=== PATIENT | male | born 1960 | race Caucasian/White ===

== ENCOUNTER 2020-05-15 12:57 | Inpatient (IN) | payer BC, SELFPAY ==
[2020-05-15] VITALS (12 sets, daily range): BP systolic 112–141; BP diastolic 61–89; PULSE 70–98; RESP 12–18; TEMP 36.3–36.6; O2SAT 93–98; BMI 36.2
--- NOTE | 2020-05-15 | XR_ITS ---
WS: [id number] Exam: XR tibia fibula RT 2V [id number] Date/Time of Exam: 05/15/2020 6:17 PM Reason For Exam: OR PICS Comparison 05/15/2020. C-arm images of the right tibia and fibula are submitted for evaluation. Comminuted spiral fracture o f the lower metadiaphysis of the tibia is noted stabilized with the an intramedullary katie and multipl e screws. No positional change noted. Alignment appears to be satisfactory for healing. There is also a spiral fracture of the lower diaphysis of the fibula unchanged in position. XR/XR tibia fibula RT 2V [id number] IMPRESSION: 1. Fracture of the lower tibia with internal fixation. Alignment appears to be satisfactory for healing without change. 2. Fracture of the lower fibula unchanged in alignment.
--- NOTE | 2020-05-15 | SCC_ITS ---
Procedure: IM nail Right Tibia 119.7 seconds of fluoroscopic guidance, for a cumulative dose of 5.62 mGy, was provided to by the radiology department. C-arm images of the RIGHT lower leg were saved for the patient's permanent record. [facility]
--- NOTE | 2020-05-15 13:03 | XRR_ITS ---
PROCEDURE INFORMATION: Exam: XR Chest, 1 View Exam date and time: 05/15/2020 1:26 PM Age: 59 years old Clinical indication: Injury or trauma; Fall; Blunt trauma (contusions or hematomas); Additional info: Dyspnea TECHNIQUE: Imaging protocol: XR of the chest Views: 1 view. COMPARISON: No relevant prior studies available. FINDINGS: Lungs: Unremarkable. No consolidation. Pleural space: Unremarkable. No pleural effusion. No pneumothorax. Heart/Mediastinum: Unremarkable. No cardiomegaly. Bones/joints: Surgical hardware is seen in the left clavicle and cervical spine XR/XR chest 1V portable [id number] IMPRESSION: 1. No acute findings. 2. Surgical hardware left clavicle and cervical spine
--- NOTE | 2020-05-15 13:06 | ECG_ITS ---
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 Measurements Intervals [place] Rate: 91 P: 64 OK: 157 QRS: 79 QRSD: 86 T: 65 QT: 336 QTc: 414 Interpretive Statements SINUS RHYTHM No previous ECG available for comparison Electronically Signed On 05-15-2020 16:40:01 GROCERY DEPARTMENT MANAGER by Flex Rivers M.D. [id number]
--- NOTE | 2020-05-15 13:07 | XRR_ITS ---
PROCEDURE INFORMATION: Exam: XR Right Tibia and Fibula Exam date and time: 05/15/2020 1:24 PM Age: 59 years old Clinical indication: Injury or trauma; Fall; Blunt trauma; Ankle; Right; Additional info: Tib/fib fracture TECHNIQUE: Imaging protocol: XR Right tibia and fibula. Views: 2 views. COMPARISON: No relevant prior studies available. FINDINGS: Bones/joints: Comminuted mildly displaced fracture of the distal shaft of the tibia and fibula Soft tissues: Normal. XR/XR tibia fibula RT 2V [id number] IMPRESSION: Comminuted mildly displaced fracture distal shaft of the tibia and fibula
--- NOTE | 2020-05-15 13:08 | XRR_ITS ---
PROCEDURE INFORMATION: Exam: XR Right Ankle Exam date and time: 05/15/2020 1:24 PM Age: 59 years old Clinical indication: Injury or trauma; Fall; Blunt trauma; Ankle; Right; Additional info: Tib fib fracture TECHNIQUE: Imaging protocol: XR Right ankle. Views: 1 or 2 views. COMPARISON: No relevant prior studies available. FINDINGS: Bones/joints: There is a comminuted mildly displaced fracture of the distal shaft of the tibia and fibula. The bones show closed reduction and improved alignment since prior Soft tissues: . Splint material is now in place in the posterior aspect of the ankle. XR/XR ankle RT 2V [id number] IMPRESSION: Comminuted displaced fracture distal shaft of the tibia and fibula.
--- NOTE | 2020-05-15 13:10 | ED_ITS ---
HPI - Extremity Injury (Lower) General: Chief Complaint: Extremity Injury, Lower Stated Complaint: RIGHT LOWER EXT PAIN Time Seen by Provider: 05/15/20 12:58 History of Present Illness: HPI Narrative: The patient is a 59-year-old male who comes to the ER complaining of tib-fib fracture on the right. He says he broke it 20 years ago and had the pins and rods taken out a couple years ago. Today he was standing felt like his knee was buckling but he realized his leg crumpled underneath him. It is externally rotated. EMS was called and placed him in a splint. He has good cap refill in his toes and palpable DP pulse. Sensation intact in his toes and feet. EMS gave 2 mg Dilaudid prior to arrival MD complaint: leg injury Place: street/outdoors Severity: similar to previous episodes Exacerbating factors: movement Context: fall Associated symptoms: Reports inability to bear weight and swelling; Deny numbness Other symptoms: none Review of Systems General: Reports: 10 or more systems reviewed and unremarkable except in HPI and below Const: Denies: fatigue Eyes: Denies: change in vision, blurry vision or eye redness ENMT: Denies: throat pain, swelling of lips/tongue, ear or mastoid pain or nasal congestion Card: Denies: chest pain, palpitations, irregular heart rhythm, edema, dyspnea on exertion or orthopnea Resp: Denies: dyspnea, productive cough or non-productive cough GI: Denies: abdominal pain, diarrhea or GI cramping : Denies: flank pain, urinary frequency or urinary urgency Musc: Denies: neck pain, back pain, extremity pain, joint pain, joint redness, limited range of motion or muscle weakness Skin/Breast: Denies: rash, pruritus, erythema, skin pain or skin tenderness Neuro: Denies: headache(s), numbness in extremities, weakness in extremities, sensory changes, difficulty walking, dizziness, confusion or Slurred speech present Psych: Denies: anxiety or depression Endo: Denies: polyuria All/Imm: Denies: urticaria, throat swelling or tongue swelling Physical Exam Const: COMMON NORMALS: no acute distress, average body habitus, patient oriented x3, no limitations, healthy appearing, alert and well nourished GENERAL APPEARANCE: cooperative, comfortable, well kempt and well developed ORIENTATION/CONSCIOUSNESS: Yes awake, Yes oriented to person, Yes oriented to place and Yes oriented to time HENMT: COMMON NORMALS: normocephalic, external ears normal and Normal external nose present HEAD & SCALP: normal to inspection and normocephalic NOSE: Normal external nose present EXTERNAL EAR: Yes external ears normal MOUTH: Normal oral and palatal mucosa present THROAT: posterior oropharynx normal Eye: COMMON NORMALS: Equal, round and reactive pupils present and EOMs intact bilaterally GENERAL EYE: appearance normal, both eyes and all related structures PUPIL: Yes Equal, round and reactive pupils present Neck/C-Spine: COMMON NORMALS: full ROM, no lymphadenopathy, no meningeal signs and no JVD GENERAL: Yes normal visual inspection Lymph: LYMPHATIC: no lymphadenopathy noted Chest: COMMONS NORMALS: normal inspection of the chest and normal palpation of entire chest wall Resp: COMMON NORMALS: normal respiratory effort, No retractions, No use of accessory muscles, clear to auscultation bilaterally and percussion normal EFFORT & INSPECTION: Yes able to speak in complete sentences AUSCULTATION: clear to auscultation bilaterally PERCUSSION: percussion normal Cardio: COMMON NORMALS: no JVD, regular rate, regular rhythm, S1 normal heart sound present, S2 normal heart sound present and Peripheral pulses 2+ throughout RATE: regular rate RHYTHM: regular rhythm HEART SOUNDS: S1 normal heart sound present and S2 normal heart sound present PERIPHERAL PULSES: Peripheral pulses 2+ throughout GI: COMMON NORMALS: Normal to inspection, nondistended, normoactive bowel sounds present, Soft to palpation, non-tender and no masses INSPECTION: Yes normal to inspection PALPATION: Yes Soft to palpation : COMMON NORMALS: Yes no CVA tenderness BLADDER/KIDNEY EXAM: Yes no CVA tenderness Back/Pelvis: COMMON NORMALS: no CVA tenderness, thoracic and lumbar spine normal to inspection, no thoracic nor lumbar tenderness and thoraco-lumbar ROM normal Extremity: COMMON NORMALS: normal to inspection, full ROM, capillary refill normal, no joint enlargement and no pedal edema NARRATIVE EXTREMITY EXAM: Normal except right lower extremity obvious tib-fib fracture. Closed fracture. The leg is externally rotated 20 to 30 degrees. Palpable dorsalis pedis pulse. Capillary refill and sensation intact distal to injury. GENERAL: Yes normal exam except as noted Neuro: COMMON NORMALS: patient oriented x3, CN's II-XII intact bilaterally, moves all extremities, no focal motor deficits, no sensory deficits noted and gait normal SENSORIUM/ORIENTATION: Yes alert, Yes oriented to person, Yes oriented to place and Yes oriented to time MENINGEAL SIGNS: Yes no meningeal signs Psych: COMMON NORMALS: mental status grossly normal, Normal thought process present, cooperative, normal affect and speech normal APPEARANCE: Yes well kempt ATTITUDE: Yes calm SPEECH: Yes normal speech THOUGHT PROCESS: Normal thought process present Skin: COMMON NORMALS: no rashes or lesions noted GENERAL SKIN EXAM: no rashes or lesions noted Course Vital Signs: Vital signs: Vital Signs Temperature 97.7 F 05/15/20 13:03 Pulse Rate 70 05/15/20 13:16 Respiratory Rate 18 05/15/20 13:03 Blood Pressure 135/82 05/15/20 13:03 Pulse Oximetry 95 05/15/20 13:03 MDM - Extremity Injury (Lower) MDM Narrative: Medical decision making narrative: The patient has a tib-fib fracture comminuted to his right side. Discussed with Dr. Hodges who will consult on him and Dr. Oneal accepts for inpatient care. Patient's pain is under control currently Differential Diagnosis: Extremity Injury, Lower Differential Diagnosis: Likely ankle sprain and strain and ankle fracture Discharge Plan Discharge Patient Disposition: Admitted As Inpatient Clinical Impression: Fracture of tibia and fibula Qualifiers: Encounter type: initial encounter Fracture type: closed Laterality: right Qualified Code(s): S82.201A - Unspecified fracture of shaft of right tibia, initial encounter for closed fracture Condition: Stable Coding Level of Care Code ED Account Assistant for Mynor Tesfaye Exam Comprehensive
[2020-05-15 15:04] LABS: Basophils % 0.7 %; Eosinophils % 0.2 %; Hematocrit 47.5 % (42.0-52.0); Hemoglobin 15.7 g/dL (11.7-16.6); Lymphocytes # 0.7 10^3/uL (0.8-4.8); Lymphocytes % 12.9 %; Mean Corpuscular HGB Conc 33.1 g/dL (30.0-36.0); Mean Corpuscular Hemoglobin 34.1 pg (28.0-34.0); Mean Corpuscular Volume 103.3 fL (80-94); Mean Platelet Volume 9.6 fL (7.4-10.4); Monocytes # 0.7 10^3/uL (0.2-0.9); Monocytes % 12.3 %; Neutrophils # 4.06 10^3/uL (1.8-7.7); Neutrophils % 73.7 %; Nucleated Red Blood Cells % 0 %; Platelet Count 185 10^3/cmm (130-400); Red Cell Distribution Width 13.4 % (12.1-15.1); White Blood Count 5.5 10^3/uL (4.0-10.0)
[2020-05-15 15:30] LABS: Troponin(5th) Baseline 8 ng/L (0-15)
[2020-05-15 15:37] LABS: Alanine Aminotransferase 21 U/L (0-41); Albumin Level 4.1 g/dL (3.5-5.2); Alkaline Phosphatase 74 IU/L (40-130); Anion Gap 16.4 (5-19); Aspartate Amino Transferase 25 U/L (0-40); Blood Urea Nitrogen 17 mg/dL (6-20); Carbon Dioxide 21 mmol/L (22-29); Chloride 102 mmol/L (98-107); Globulin 2.3 g/dL (1.3-4.6); Glomerular Filtration Rate 76.7 mL/min (90-130); Glucose 108 mg/dL (65-115); NT Pro B Type Natriuretic Pept 61 pg/mL (0-125); Osmolality Calculated 282 mOsm/kg (285-295); Potassium 4.4 mmol/L (3.5-5.1); Sodium 135 mmol/L (136-145); Total Bilirubin 0.3 mg/dL (0.15-1.2); Total Protein 6.4 g/dL (6.6-8.7)
--- NOTE | 2020-05-15 16:08 | PM.CONSULT ---
Providers/Reason For Consult Consulting Physican/Specialty*: hospitalist Reason for Consult*: Broken tibia Attending Physician: Simone Hodges DO History of Present Illness History of Present Illness Angel Jane is a 59 year old male The patient is a 59-year-old male who comes to the ER complaining of tib-fib fracture on the right. He says he broke it 20 years ago and had the pins and rods taken out a couple years ago. Today he was standing felt like his knee was buckling but he realized his leg crumpled underneath him. It is externally rotated. EMS was called and placed him in a splint. He has good cap refill in his toes and palpable DP pulse. Sensation intact in his toes and feet. EMS gave 2 mg Dilaudid prior to arrival MD complaint: leg injury Place: street/outdoors Severity: similar to previous episodes Exacerbating factors: movement Context: fall Associated symptoms: Reports inability to bear weight and swelling; Deny numbness Other symptoms: none Review of Systems Narrative: General ROS: negative for weight changes, fever ENT ROS: negative for nasal congestion, drainage or bleeding, sore throat, dysphagia or ear pain Eyes: PERRL Hematological and Lymphatic ROS: negative for swollen glands or abnormal bleeding Endocrine ROS: negative for polyuria/polydpsia or new changes in weight Respiratory ROS: negative for cough, shortness of breath, or wheezing Cardiovascular ROS: negative for chest pain or dyspnea on exertion Gastrointestinal ROS: negative for reflux, abdominal pain, change in bowel habits, or black or bloody stools Musculoskeletal ROS: negative for back pain, neck pain, or joint pain or swelling except for current problem Neurological ROS: negative for TIA or stoke symptoms Skin: no rashes Meds/Allergies Home Medications and Allergies Home Medications Medication Instructions Recorded Confirmed Last Taken Type alfuzosin 10 mg PO DAILY@05/15/20 05/15/20 05/15/20 History bupropion HCl 300 mg PO DAILY@05/15/20 05/15/20 05/15/20 History clonazepam 1 mg PO TID PRN 05/15/20 05/15/20 05/15/20 History diltiazem HCl 180 mg PO DAILY@05/15/20 05/15/20 05/15/20 History duloxetine See Rx Instructions .ROUTE .COMPLEX 05/15/20 05/15/20 05/15/20 History lisinopril 5 mg PO DAILY@219905/15/20 05/15/20 05/14/20 History mirtazapine 30 mg PO BEDTIME@219905/15/20 05/15/20 05/14/20 History pantoprazole 40 mg PO DAILY@07 05/15/20 05/15/20 05/15/20 History tizanidine 4 mg PO BEDTIME@22005/15/20 05/15/20 05/14/20 History topiramate 100 mg PO BEDTIME@22005/15/20 05/15/20 05/14/20 History Allergies Allergy/AdvReac Type Severity Reaction Status Date / Time NSAIDS (Non-Steroidal Allergy Unknown Unknown Verified 05/15/20 14:25 Anti-Inflamma Penicillins Allergy Unknown Unknown Verified 05/15/20 14:25 Sulfa (Sulfonamide Allergy Unknown Unknown Verified 05/15/20 14:25 Antibiotics) Vitals/I&O/Wt Last Vital Signs Temp 97.6 F 05/15/20 15:10 Pulse 87 05/15/20 15:10 Resp 18 05/15/20 15:10 BP 136/76 05/15/20 15:10 Pulse Ox 95 05/15/20 15:10 Weight last 48 hrs Weight 260 lb Physical Exam Narrative: EXAM NARRATIVE: Skin: Intact and healthy Swelling: right leg with sweling Tenderness location: right tibia Tenderness severity: modrate A&P Assessment and plan (1) Fracture of tibia and fibula: Status: Acute Qualifiers: Encounter type: initial encounter Fracture type: closed Laterality: right Qualified Code(s): S82.201A - Unspecified fracture of shaft of right tibia, initial encounter for closed fracture; S82.401A - Unspecified fracture of shaft of right fibula, initial encounter for closed fracture Additional A&P Information IM nail Right Tibia Consult Attestations Medical Necessity Statement: broken tibia needs surgery Coding Level of Care Code Acute Orthopedics Pediatric Physician for Chg Fwd Diagnoses Fracture of tibia and fibula S82.201A; S82.401A Encounter type: initial encounter Fracture type: closed Laterality: right
--- NOTE | 2020-05-15 16:16 | W.PM.OPSUD ---
Surgery/Procedure H&P Update DATE OF PROCEDURE: May 15, 2020 DATE H&P PERFORMED: 05/15/20 H&P UPDATE INFORMATION: I have examined patient prior to procedure PLANNED PROCEDURE: Operation Date: 05/15/20 16:50 Proposed Procedures p ORIF Tibia/Fibula(Right) - Simone Hodges DO
--- NOTE | 2020-05-15 16:34 | ANES.PREANE2 ---
Pre-Anesthetic Assessment Pre-Anesthetic Assessment: Height/Weight: Height 1.8 m Weight 117.934 kg Temp Pulse Resp BP Pulse Ox 97.6 F 87 18 136/76 95 05/15/20 15:10 05/15/20 15:10 05/15/20 15:10 05/15/20 15:10 05/15/20 15:10 Preop Diagnosis: right tibia fracture Proposed Procedure: Operation Date: 05/15/20 16:50 Proposed Procedures p ORIF Tibia/Fibula(Right) - Simone Hodges, DO Was Beta Anushka taken within 24 hours: N/A Social: Social History: Tobacco and No tobacco Exam: Pre-Anes Outpt Exam: alert, oriented x 3, clear to auscultation bilaterally and regular rate & rhythm Airway: Submandibular: WNL Cervical ROM: WNL MP: 2 Dentition: Full Pulmonary: Pulmonary: Sleep apnea CV/HEM: CV/HEM: HTN : : None reported Hepatic: Hepatic: None reported GI: GI: GERD Metabolic: Metabolic: None reported Musc/skel: Comments: RLE frx Neuropsych: Neuropsych: Anxiety Anesthetic Plan: ASA status: 3 Anesthesia: General Risk of > 500 ml blood loss (7ml/kg in children): No Data Anesthesia CBC & Chem 7: 05/15/20 14:33 05/15/20 14:33 Other Labs: Laboratory Results - last 48 hr 05/15/20 05/15/20 05/15/20 14:33 14:33 14:33 WBC 5.5 RBC 4.60 Hgb 15.7 Hct 47.5 MCV 103.3 H MCH 34.1 H MCHC 33.1 RDW 13.4 Plt Count 185 MPV 9.6 Neut % (Auto) 73.7 Lymph % (Auto) 12.9 [place] % (Auto) 12.3 Eos % (Auto) 0.2 Baso % (Auto) 0.7 Neut # (Auto) 4.06 Lymph # (Auto) 0.7 L [place] # (Auto) 0.7 Eos # (Auto) 0.0 Baso # (Auto) 0.0 Nucleated RBC % (auto) 0 Nucleated RBCs # 0.0 Sodium 135 L Potassium 4.4 Chloride 102 Carbon Dioxide 21 L Anion Gap 16.4 BUN 17 Creatinine 1.0 GFR Calculation 76.7 L Glucose 108 Calculated Osmolality 282 L Calcium 9.0 Total Bilirubin 0.3 AST 25 ALT 21 Alkaline Phosphatase 74 Troponin T Baseline 8 NT-Pro-B Natriuret Pep 61 Total Protein 6.4 L Albumin 4.1 Globulin 2.3 Cardiac Studies: No Data to Display
[2020-05-15] MEDS: clindamycin 900 MG/50 ML PREMIX 100 MG IV (16:45)
[2020-05-15 17:51] LABS: Add Urine Microscopic? NO
[2020-05-15 17:58] LABS: Bilirubin Urine Neg (Negative); Blood Urine Neg (Negative); Glucose Urine UA Norm (Normal); Ketones Urine Negative (Negative); Leukocyte Esterase Urine Negative (Negative); Nitrate Urine Negative (Negative); Protein Urine Neg (Negative); Sulfosalicylic Acid Urine Negative (Negative); Urine Appearance Clear (CLEAR); Urine Color Yellow (Yellow); Urobilinogen Urine Norm (Negative); pH Urine 8 (5-7)
--- NOTE | 2020-05-15 18:22 | PM.OP ---
Operative Report Date of procedure: May 15, 2020 Pre-op Diagnosis: right tibia fracture Post-op diagnosis: same Procedure Done: IM nail Right Tibia Surgeon: Simone Hodges Anesthesia: General Estimated blood loss (mL): 100 Condition: stable Disposition: PACU Procedure: IM nail Right Tibia Patient brought to the operative suite placed in supine position all areas impingement well-padded patient prepped and draped normal sterile fashion. Start incision made over the quad tendon. Quad tendon was split. Dilators passed into the quad tendon to the starting point of the tibia. Opening reamer was inserted guidewires passed fractures reduced the onpja-zh-jnoaf reduction clamp. Once the guidewire was passed then the canal was reamed to 13 mm with diet size 11 nail was selected. Appropriate side length. 2 screws were placed proximal locking screws. Through the nail of the bone. And 3 screws were placed distally. 2 screws medial to lateral. And 1 screw anterior to posterior. AP lateral fluoroscopy ensured the fracture and hardware prone position. Wounds were irrigated closed with Vicryl and med. Sterile dressings were applied patient was transferred to the PACU in stable condition.
--- NOTE | 2020-05-15 18:37 | ANE.PACU2 ---
Inpatient post-anesthesia follow up: Airway intact: Yes Vital signs: Temperature 97.6 F Pulse Rate [Right] 70 Pulse Rate 87 Respiratory Rate 18 Blood Pressure [Ri ght Arm] 135/82 Blood Pressure 136/76 Pulse Oximetry 95 Oxygen Delivery Me thod Room Air Oxygen Flow Rate Fraction of Inspir ed Oxygen Hydration adequate: Yes Nausea and vomiting: No Pain level: 2 Mental status: Baseline
--- NOTE | 2020-05-15 19:27 | PM.HP ---
Providers/Chief Complaint Admitting Physician: Simone Hodges DO Chief Complaint: RIGHT LOWER EXT PAIN History of Present Illness Angel Jane is a 59 year old male who has history of hypertension, dyslipidemia previous history of right fibula, fibula fracture 1996, presented today after a fall. Patient is stating that today he fell when his right leg crumpled, he fell backwards and noted his right leg was rotated outwards. He is denying recent falls, trauma to his leg or any blunt forceful trauma/accidents. Currently the patient this happened spontaneously today. He was brought to the ER was diagnosed with right tibiofibular fracture he was taken to the OR right away by the time I saw him he was on medical floor resting comfortably. He was complaining of knee pain and dry mouth and wanted to eat something. He was able to tell me about his medications and past medical and surgical history. He was awake alert. Hemodynamically stable, afebrile. Labs were reviewed, glucose 108, procedure note reviewed patient is status post IM nail right tibia. Review of Systems Const: Denies: fever(s) Eyes: Denies: change in vision ENMT: Denies: throat pain Card: Denies: chest pain Resp: Denies: dyspnea GI: Denies: abdominal pain : Denies: flank pain Musc: Reports: extremity pain and limited range of motion; Denies: neck pain Skin/Breast: Denies: rash Neuro: Denies: headache(s) Psych: Denies: anxiety Endo: Denies: polyuria Devin/Lymph: Denies: easy bruising All/Imm: Denies: urticaria Medications/Allergies Home Medications Medication Instructions Recorded Confirmed Last Taken Type alfuzosin 10 mg PO DAILY@05/15/20 05/15/20 05/15/20 History bupropion HCl 300 mg PO DAILY@05/15/20 05/15/20 05/15/20 History clonazepam 1 mg PO TID PRN 05/15/20 05/15/20 05/15/20 History diltiazem HCl 180 mg PO DAILY@05/15/20 05/15/20 05/15/20 History duloxetine See Rx Instructions .ROUTE .COMPLEX 05/15/20 05/15/20 05/15/20 History lisinopril 5 mg PO DAILY@0 05/15/20 05/15/2020 History mirtazapine 30 mg PO BEDTIME@219905/15/20 05/15/20 05/14/20 History pantoprazole 40 mg PO DAILY@07 05/15/20 05/15/20 05/15/20 History tizanidine 4 mg PO BEDTIME@219905/15/20 05/15/20 05/14/20 History topiramate 100 mg PO BEDTIME@219905/15/20 05/15/20 05/14/20 History Allergies Allergy/AdvReac Type Severity Reaction Status Date / Time NSAIDS (Non-Steroidal Allergy Unknown Unknown Verified 05/15/20 14:25 Anti-Inflamma Penicillins Allergy Unknown Unknown Verified 05/15/20 14:25 Sulfa (Sulfonamide Allergy Unknown Unknown Verified 05/15/20 14:25 Antibiotics) PFSH Acute PFSH: Medical History (Updated 05/15/20 @ 20:22 by Brayan Petersen MD) Alcohol abuse No recent relapse Depression Dyslipidemia Exertional shortness of breath Hypertension Leg fracture, right 1997 right tibia and fibula Migraine headache Surgical History (Updated 05/15/20 @ 20:22 by Brayan Petersen MD) H/O cardiac catheterization November 2019, normal angiogram Family History (Updated 05/15/20 @ 20:22 by Brayan Petersen MD) Other CAD (coronary artery disease) Cancer Diabetes Social History (Updated 05/15/20 @ 20:22 by Brayan Petersen MD) Smoking and tobacco status: current every day smoker smokeless tobacco Alcohol intake: current Alcohol intake frequency: few times a month Substance/Drug Use: never Household members: spouse Housing: House Vitals/I&O/Wt Last Vital Signs Temp 97.6 F 05/15/20 18:40 Pulse 92 05/15/20 18:40 Resp 15 05/15/20 18:40 BP 112/61 05/15/20 18:40 Pulse Ox 94 05/15/20 18:40 05/15/20 05/15/20 05/15/20 06:59 14:59 22:59 Intake Total 50 / 50 Output Total 25 / 25 Balance 25 / 25 Weight last 48 hrs Weight 117.934 kg Physical Exam Narrative: EXAM NARRATIVE: Morbidly obese male currently in semifollow position complaining of right knee pain otherwise no chest pain shortness of breath Awake alert oriented x3 GCS 15 Looks more than stated age Patient is asking for sip of water Awake alert oriented x3 GCS 15 no neurological deficit EOMI, PERRLA Right leg with splint and surgical dressing which was not removed Patient complaining of right knee pain No skin color changes of right foot noted Abdomen soft distended bloated visceral obesity No chest pain No acute respite distress Skin without any ischemia gangrene or ulcer Data : 05/15/20 14:33 05/15/20 14:33 A&P Assessment and plan (1) Fracture of tibia and fibula: Day 0 status post intramedullary nail right tibia Complaining of knee pain Currently on [place] I would add bowel regimen to avoid opioid-induced constipation DVT prophylaxis initiated by orthopedic Lovenox 40 mg every 24 hours Bedside filter tip inspector spirometry Monitor for postop complications, 100 mL blood loss during the procedure currently hemodynamically stable I would resume his cardiac diet Status: Acute Qualifiers: Encounter type: initial encounter Fracture type: closed Laterality: right Qualified Code(s): S82.201A - Unspecified fracture of shaft of right tibia, initial encounter for closed fracture; S82.401A - Unspecified fracture of shaft of right fibula, initial encounter for closed fracture Additional A&P Information Hypertension: Currently normotensive I will resume his Cardizem and lisinopril Anxiety/depression: He takes Klonopin and Topamax, mirtazapine at bedtime GERD: Protonix 40 p.o. daily BPH: Continue uroxatral Full code Cardiac diet DVT prophylaxis Lovenox PT elevation Attestations Medical Necessity Statement*: Anticipating stay in the hospital cross more than 2 midnights for management of right tibia-fibula fracture Time Spent in Patient Care: (>than 50% of time spent in counselling and/or direct pt care on unit). 50mins Coding Level of Care Code Acute Loan Servicing Officer for Mynor Tesfaye Diagnoses Fracture of tibia and fibula S82.201A; S82.401A Encounter type: initial encounter Fracture type: closed Laterality: right
[2020-05-15] MEDS: HYDROcodone-acetaminophen 5-325 mg Tablet PO (20:12)
[2020-05-15] MEDS: lisinopril 10 mg Tablet 5 MG PO (21:44)
[2020-05-15] MEDS: tizanidine 4 mg Tablet PO (21:45)
[2020-05-15] MEDS: mirtazapine 30 mg Tablet PO (21:45)
[2020-05-15] MEDS: topiramate 100 mg Tablet PO (21:45)
[2020-05-15] MEDS: duloxetine 30 mg Capsule PO (21:50)
[2020-05-15] MEDS: morphine 4 mg/mL SDV 1 mL 1 MG IVP (22:11)
[2020-05-16] VITALS (8 sets, daily range): BP systolic 103–120; BP diastolic 62–84; PULSE 91–106; RESP 15–20; TEMP 36.9–37.4; O2SAT 92–97
[2020-05-16] MEDS: clindamycin 900 MG/50 ML PREMIX 100 MG IV ×3 (01:13→16:01)
[2020-05-16] MEDS: HYDROcodone-acetaminophen 5-325 mg Tablet PO ×3 (01:20→14:00)
--- NOTE | 2020-05-16 06:11 | PC.NURSE ---
Shift summary Patient has done well this shift. He has had some pain and required pain medication x4 this shift. He has good vitals this shift. He has had good urine output this shift. His dressing are dry and intact. No signs of drainage noted.
[2020-05-16 06:15] LABS: Basophils % 0.3 %; Eosinophils % 0.3 %; Hematocrit 41.8 % (42.0-52.0); Hemoglobin 13.6 g/dL (11.7-16.6); Lymphocytes # 0.8 10^3/uL (0.8-4.8); Lymphocytes % 13.3 %; Mean Corpuscular HGB Conc 32.5 g/dL (30.0-36.0); Mean Corpuscular Hemoglobin 33.9 pg (28.0-34.0); Mean Corpuscular Volume 104.2 fL (80-94); Mean Platelet Volume 9.2 fL (7.4-10.4); Monocytes # 0.8 10^3/uL (0.2-0.9); Monocytes % 14.5 %; Neutrophils # 4.15 10^3/uL (1.8-7.7); Neutrophils % 71.4 %; Nucleated Red Blood Cells % 0 %; Platelet Count 166 10^3/cmm (130-400); Red Blood Count 4.01 10^6/uL (4.1-5.3); Red Cell Distribution Width 13.5 % (12.1-15.1); White Blood Count 5.8 10^3/uL (4.0-10.0)
[2020-05-16 06:23] LABS: Glucose Point of Care 114 mg/dL (70-110)
[2020-05-16] MEDS: enoxaparin 40 mg/0.4 mL Syringe SUBCUT (06:23)
[2020-05-16 06:39] LABS: Anion Gap 12.1 (5-19); Blood Urea Nitrogen 15 mg/dL (6-20); Calcium 8.8 mg/dL (8.5-10.5); Carbon Dioxide 24 mmol/L (22-29); Chloride 101 mmol/L (98-107); Glomerular Filtration Rate 99.3 mL/min (90-130); Glucose 127 mg/dL (65-115); Osmolality Calculated 278 mOsm/kg (285-295); Potassium 4.1 mmol/L (3.5-5.1); Sodium 133 mmol/L (136-145)
[2020-05-16] MEDS: duloxetine 60 mg Capsule PO (06:39)
[2020-05-16] MEDS: morphine 4 mg/mL SDV 1 mL 1 MG IVP (08:38)
[2020-05-16] MEDS: sennosides-docusate Tablet 1 TAB PO (08:38)
--- NOTE | 2020-05-16 10:15 | PM.PN ---
Subjective Subjective: Interval history: patient pain controlled this am was having difficulty through the night Vitals/I&O/Wt Last Vital Signs Temp 99.3 F 05/16/20 08:51 Pulse 106 H 05/16/20 08:51 Resp 18 05/16/20 08:51 BP 103/62 05/16/20 08:51 Pulse Ox 93 05/16/20 08:51 05/15/20 05/16/20 05/16/20 22:59 06:59 14:59 Intake Total 290 / 290 50 / 340 770 / 770 Output Total 475 / 500 Balance 265 / 265 -425 / -160 770 / 770 Weight last 48 hrs Weight 260 lb Physical Exam Narrative: EXAM NARRATIVE: Dressing cdi moving toes sensation intact Data : 05/16/20 06:00 05/16/20 06:00 A&P Additional A&P Information POD #1 IM nail Right Tibia WBAT Right LE Up with PT OK to d/C from ortho standpoint if able to get up with PT d/c on lovenox or aspirin for dvt prophylaxis Attestations Medical Necessity Statement*: OK to d/c from orthostandpoint if able to get up with PT Coding Level of Care Code Acute Environmental Services Associate for Mynor Tesfaye
--- NOTE | 2020-05-16 13:33 | P.DS_ITS ---
Discharge Providers Date of Admission: 05/15/20 19:02 Date of Discharge: May 16, 2020 Attending Provider at Admission: Simone Hodges DO Attending Provider at Discharge: Simone Hodges DO Diagnoses at Discharge Discharge Diagnosis (1) Fracture of tibia and fibula: Status: Acute Qualifiers: Encounter type: initial encounter Fracture type: closed Laterality: right Qualified Code(s): S82.201A - Unspecified fracture of shaft of right tibia, initial encounter for closed fracture; S82.401A - Unspecified fracture of shaft of right fibula, initial encounter for closed fracture Reason for Visit Reason for Visit: RIGHT LOWER EXT PAIN Hospital Course Hospital Course 59 year old male who has history of hypertension, dyslipidemia previous history of right fibula, fibula fracture 1996, presented today after a fall. Patient is stating that today he fell when his right leg crumpled, he fell backwards and noted his right leg was rotated outwards. He is denying recent falls, trauma to his leg or any blunt forceful trauma/accidents. Currently the patient this happened spontaneously today. He was brought to the ER was diagnosed with right tibiofibular fracture he was taken to the OR right away by the time I saw him he was on medical floor resting comfortably. He was complaining of knee pain and dry mouth and wanted to eat something. He was able to tell me about his medications and past medical and surgical history. He was awake alert. Hemodynamically stable, afebrile. Labs were reviewed, glucose 108, procedure note reviewed patient is status post IM nail right tibia. Postoperative course was uncomplicated. pain was under control. Patient was cleared for discharge from orthopedic surgery standpoint. Was started on Lovenox 40 mg subcu daily times 30 days for DVT prophylaxis. Discharged in stable condition. Physical Exam Narrative: EXAM NARRATIVE: General-alert awake and oriented x3 HEENT-grossly unremarkable Chest -nonlabored respirations CVS -normal sinus rhythm Abdomen-nondistended Extremities- no edema Discharge Data Data Completed and Pending: Completed Studies During Hospitalization Category Date Time Status XR ankle RT 2V 73 600 Stat Exams 05/15/20 13:08 Completed XR chest 1V gm ble 70068 Urgent Exams 05/15/20 13:03 Completed XR tibia fibula R T 2V 85724 Stat Exams 05/15/20 13:07 Completed Pending at discharge Category Date Time Status C-arm Fluoroscopy 75163 Routine Exams 05/15/20 16:19 Taken XR tibia fibula R T 2V [id number] Routine Exams 05/15/20 Taken Labs from last 24 hours 05/16/20 05/16/20 05/16/20 06:19 06:00 06:00 WBC 5.8 RBC 4.01 L Hgb 13.6 Hct 41.8 L MCV 104.2 H MCH 33.9 MCHC 32.5 RDW 13.5 Plt Count 166 MPV 9.2 Neut % (Auto) 71.4 Lymph % (Auto) 13.3 [place] % (Auto) 14.5 Eos % (Auto) 0.3 Baso % (Auto) 0.3 Neut # (Auto) 4.15 Lymph # (Auto) 0.8 [place] # (Auto) 0.8 Eos # (Auto) 0.0 Baso # (Auto) 0.0 Nucleated RBC % (a uto) 0 Nucleated RBCs # 0.0 Sodium 133 L Potassium 4.1 Chloride 101 Carbon Dioxide 24 Anion Gap 12.1 BUN 15 Creatinine 0.8 GFR Calculation 99.3 Glucose 127 H POC Glucose 114 H Calculated Osmolal ity 278 L Calcium 8.8 Total Bilirubin AST ALT Alkaline Phosphata se Troponin T Baselin e NT-Pro-B Natriuret Pep Total Protein Albumin Globulin Urine Color Urine Appearance Urine pH Ur Specific Gravit y Urine Protein Urine Glucose (UA) Urine Ketones Urine Blood Urine Nitrate Urine Bilirubin Prot Sulfosalicyli c Acd Urine Urobilinogen Ur Leukocyte Mery ase 05/15/20 05/15/20 05/15/20 14:33 14:33 14:33 WBC 5.5 RBC 4.60 Hgb 15.7 Hct 47.5 MCV 103.3 H MCH 34.1 H MCHC 33.1 RDW 13.4 Plt Count 185 MPV 9.6 Neut % (Auto) 73.7 Lymph % (Auto) 12.9 [place] % (Auto) 12.3 Eos % (Auto) 0.2 Baso % (Auto) 0.7 Neut # (Auto) 4.06 Lymph # (Auto) 0.7 L [place] # (Auto) 0.7 Eos # (Auto) 0.0 Baso # (Auto) 0.0 Nucleated RBC % (a uto) 0 Nucleated RBCs # 0.0 Sodium 135 L Potassium 4.4 Chloride 102 Carbon Dioxide 21 L Anion Gap 16.4 BUN 17 Creatinine 1.0 GFR Calculation 76.7 L Glucose 108 POC Glucose Calculated Osmolal ity 282 L Calcium 9.0 Total Bilirubin 0.3 AST 25 ALT 21 Alkaline Phosphata se 74 Troponin T Baselin e 8 NT-Pro-B Natriuret Pep 61 Total Protein 6.4 L Albumin 4.1 Globulin 2.3 Urine Color Urine Appearance Urine pH Ur Specific Gravit y Urine Protein Urine Glucose (UA) Urine Ketones Urine Blood Urine Nitrate Urine Bilirubin Prot Sulfosalicyli c Acd Urine Urobilinogen Ur Leukocyte Mery ase 05/15/20 14:00 WBC RBC Hgb Hct MCV MCH MCHC RDW Plt Count MPV Neut % (Auto) Lymph % (Auto) [place] % (Auto) Eos % (Auto) Baso % (Auto) Neut # (Auto) Lymph # (Auto) [place] # (Auto) Eos # (Auto) Baso # (Auto) Nucleated RBC % (a uto) Nucleated RBCs # Sodium Potassium Chloride Carbon Dioxide Anion Gap BUN Creatinine GFR Calculation Glucose POC Glucose Calculated Osmolal ity Calcium Total Bilirubin AST ALT Alkaline Phosphata se Troponin T Baselin e NT-Pro-B Natriuret Pep Total Protein Albumin Globulin Urine Color Yellow Urine Appearance Clear Urine pH 8 H Ur Specific Gravit y 1.010 Urine Protein Neg Urine Glucose (UA) Norm Urine Ketones Negative Urine Blood Neg Urine Nitrate Negative Urine Bilirubin Neg Prot Sulfosalicyli c Acd Negative Urine Urobilinogen Norm Ur Leukocyte Mery ase Negative Vitals: Last Vital Signs Temp 99.3 F 05/16/20 08:51 Pulse 106 H 05/16/20 08:51 Resp 18 05/16/20 08:51 BP 103/62 05/16/20 08:51 Pulse Ox 93 05/16/20 08:51 Discharge Plan Discharge Patient Disposition: Home Condition: Stable Prescriptions: New hydrocodone-acetaminophen 5-325 mg Tablet 1 tab PO Q4H PRN (Reason: Breakthrough Pain) Qty: 15 RF: 0 enoxaparin 40 mg/0.4 mL Syringe 40 mg SUBCUT Q24H 30 Days Qty: 12 RF: 0 Continued diltiazem HCl 180 mg capsule,extended release 24hr 180 mg PO DAILY@07 RF: 0 tizanidine 4 mg tablet 4 mg PO BEDTIME@2200 RF: 0 clonazepam 1 mg tablet 1 mg PO TID PRN (Reason: Anxiety) RF: 0 pantoprazole 40 mg tablet,delayed release (DR/EC) 40 mg PO DAILY@07 RF: 0 mirtazapine 30 mg tablet 30 mg PO BEDTIME@2199 RF: 0 lisinopril 10 mg tablet 5 mg PO DAILY@2199 RF: 0 topiramate 100 mg tablet 100 mg PO BEDTIME@2199 RF: 0 bupropion HCl 300 mg tablet extended release 24 hr 300 mg PO DAILY@07 RF: 0 alfuzosin 10 mg tablet extended release 24 hr 10 mg PO DAILY@07 RF: 0 duloxetine 30 mg capsule,delayed release(DR/EC) See Rx Instructions .ROUTE .COMPLEX RF: 0 loratadine 10 mg Tablet 10 mg PO DAILY RF: 0 Discharge Orders: Discharge Order (Routine); Ordered 05/16/20 Ordered By: Vitaly Brooke Referrals: Simone Hodges DO [Physician] - 2 weeks (Please call [facility] on Sunday to schedule an appointment to be seen in 2 weeks.) Discharge Diet: Advance as tolerated Discharge Activity: Increase activity as tolerated and As per PT/OT instructions Patient Instructions: Hydrocodone/Acetaminophen (By mouth), Enoxaparin (Injection), Ankle Fracture (DC), How to Give a Subcutaneous Injection (DC) Activity Restrictions/Additional Instructions: Please monitor your blood pressure at home prior to resuming your blood pressure medications. If systolic blood pressure ( top number ) less than 100 or heart rate less than 55 do not take your blood pressure medicine. Take lovenox SQ daily to prevent blood clots. Stop taking if starting to have any bleeding and contact your PCP or orthopedic surgereon Return to hospital if new symptoms including chest pain, trouble breathing, increasing pain, or fever. Discharge Attestations Time Spent in Discharge Care*: greater than 30 min Specific Discharge Activities: educating patient, discussing with pcp/other providers, discussing with block and case maker/social workers/dc planners, documenting/other paperwork and evaluating patient/reviewing data Status at Discharge: Cognitive status at discharge: cognitively intact , Behavioral status at discharge: cooperative , Functional status at discharge: independent ambulation Overall status at discharge: patient is progressing back to baseline Quality Metrics Clinical Quality Measures During this hospital stay, did patient experience: None Coding Level of Care Code Acute Cook Pie for Mynor Barrerad Diagnoses Fracture of tibia and fibula S82.201A; S82.401A Encounter type: initial encounter Fracture type: closed Laterality: right
--- NOTE | 2020-05-17 16:03 | PC.RESP ---
Smoking Cessation information sent to patient.
== END 2020-05-16 17:42 | disposition home or self-care (01) | DRG 494 ==
LOC: ER 14:18 → OR 14:33 → MEDSURG 20:04
PROVIDERS: Internal Medicine; Admitting Provider Orthopaedic Surgery; Emergency Provider Family Medicine; Visit Provider Orthopaedic Surgery
PROC: 0QSK04Z Reposition Left Fibula with Internal Fixation Device, Open Approach (ICD-10-PCS; CPT 27828; principal; 2020-05-15 16:30)
DX: S82.251A Displaced comminuted fracture of shaft of right tibia, initial encounter for closed fracture (principal); S82.451A Displaced comminuted fracture of shaft of right fibula, initial encounter for closed fracture; W19.XXXA Unspecified fall, initial encounter; I10 Essential (primary) hypertension; E78.5 Hyperlipidemia, unspecified; F10.10 Alcohol abuse, uncomplicated; F41.8 Other specified anxiety disorders; F17.220 Nicotine dependence, chewing tobacco, uncomplicated; M25.561 Pain in right knee; K21.9 Gastro-esophageal reflux disease without esophagitis; N40.0 Benign prostatic hyperplasia without lower urinary tract symptoms
CPT/HCPCS: 12345; 36415; 36416; 71045; 73590; 73600; 76000; 80048; 80053; 81003; 82962; 83880; 84484; 85025; 93005; 96372; 97116; 97161; 97165; 97530; 99283; C1713; J1100; J1650; J2270; J2405; J2704; J3010; J3490

== ENCOUNTER → 2020-06-01 15:26 | Outpatient (BNVA) | payer BC, SELFPAY | PROVIDERS: Visit Provider Orthopaedic Surgery | DX: Z47.89 Encounter for other orthopedic aftercare (principal); S82.201D Unspecified fracture of shaft of right tibia, subsequent encounter for closed fracture with routine healing; S82.401D Unspecified fracture of shaft of right fibula, subsequent encounter for closed fracture with routine healing; X58.XXXD Exposure to other specified factors, subsequent encounter | CPT/HCPCS: 73590 ==

== ENCOUNTER → 2020-07-15 15:35 | Outpatient (BNVA) | payer BC, SELFPAY | PROVIDERS: Visit Provider Orthopaedic Surgery | DX: S82.201A Unspecified fracture of shaft of right tibia, initial encounter for closed fracture (principal); S82.401A Unspecified fracture of shaft of right fibula, initial encounter for closed fracture; Z48.89 Encounter for other specified surgical aftercare | CPT/HCPCS: 73590 ==

== ENCOUNTER → 2020-08-20 10:01 | Outpatient (BNVA) | payer BC, SELFPAY | PROVIDERS: PCP Family Medicine; Visit Provider Orthopaedic Surgery | DX: Z48.89 Encounter for other specified surgical aftercare (principal); S82.201A Unspecified fracture of shaft of right tibia, initial encounter for closed fracture; S82.401A Unspecified fracture of shaft of right fibula, initial encounter for closed fracture; X58.XXXA Exposure to other specified factors, initial encounter | CPT/HCPCS: 73590 ==

== ENCOUNTER 2022-04-10 15:40 | Observation (INO) | payer BC, SELFPAY ==
[2022-04-10] VITALS (39 sets, daily range): BP systolic 103–172; BP diastolic 70–106; PULSE 88–121; RESP 18–38; TEMP 36.8–36.9; O2SAT 91–96; BMI 36.2; BMI 37.3
--- NOTE | 2022-04-10 16:24 | PC.NURSE ---
pt reports he was told by his Dr to come to the ER to detox. Pt reports he drinks 600-800mL vodka daily. reports today he had 2-3 ounces of vodka. pt denies any drug use. when asked about pain, pt reports he is vibrating and c/o dyspnea. Pt is A&Ox4, respirations even and unlabored, lung sounds clear bilat. pt denies nausea or hallucinations
--- NOTE | 2022-04-10 16:33 | ED_ITS ---
HPI - Alcohol General: Chief Complaint: Alcohol Stated Complaint: alcohol Time Seen by Provider: 04/10/22 16:18 History of Present Illness: 61-[facility] reporting that he wants to get sober. He reports he is drinking between 608 100 cc of 80 proof vodka per day. He has to start drinking within a few hours of waking up. He does have a history of getting sober in 2017. The last year and a half he has been drinking more and more. He has a history of major depressive disorder and fatty liver disease. Patient's last drink was this morning but he did not have very much. He is beginning to have tremors and tachycardia. Associated symptoms: Reports depression; Deny abdominal pain, syncope or vomiting Review of Systems General: Reports: 10 or more systems reviewed and unremarkable except in HPI and below Const: Denies: fever(s) or chills Card: Denies: chest pain or syncope Resp: Denies: dyspnea, productive cough or non-productive cough GI: Denies: abdominal pain, vomiting or diarrhea : Denies: flank pain or dysuria Skin/Breast: Denies: rash or sores Neuro: Denies: weakness in extremities Psych: Reports: anxiety and depression [facility] ED PFSH: Medical History Alcohol abuse No recent relapse Depression Dyslipidemia Exertional shortness of breath Hypertension Leg fracture, right 1997 right tibia and fibula Migraine headache Surgical History H/O cardiac catheterization November 2019, normal angiogram Family History Other CAD (coronary artery disease) Cancer Diabetes Social History Smoking and tobacco status: current every day smoker smokeless tobacco Alcohol intake: current Alcohol intake frequency: few times a month Household members: spouse Housing: House Physical Exam Const: COMMON NORMALS: no limitations, alert and well nourished EXAM LIMITATIONS: no altered mental status HENMT: COMMON NORMALS: normocephalic, atraumatic and external ears normal HEAD & SCALP: normocephalic and atraumatic EXTERNAL EAR: Yes external ears normal MOUTH: no muffled voice Eye: COMMON NORMALS: EOMs intact bilaterally and conjunctivae normal CONJUNCTIVA: Yes conjunctivae normal Neck/C-Spine: COMMON NORMALS: no JVD GENERAL: Yes normal visual inspection and Yes trachea midline Resp: COMMON NORMALS: normal respiratory effort and No use of accessory muscles Cardio: COMMON NORMALS: no JVD and regular rhythm RATE: tachycardic RHYTHM: regular rhythm GI: COMMON NORMALS: Soft to palpation PALPATION: Yes Soft to palpation, No Guarding due to palpation present (GI) and Yes Other GI palpation findings present (Central obesity) Extremity: COMMON NORMALS: normal to inspection Neuro: COMMON NORMALS: moves all extremities, no focal motor deficits and no sensory deficits noted SENSORIUM/ORIENTATION: Yes alert OTHER: Patient is starting to have tremors in his hands and voice. Psych: COMMON NORMALS: mental status grossly normal, Normal thought process present, cooperative, normal affect and speech normal SPEECH: Yes normal speech MOOD & AFFECT: Yes anxious THOUGHT PROCESS: Normal thought process present Skin: COMMON NORMALS: no rashes or lesions noted, turgor normal and no jaundice GENERAL SKIN EXAM: no rashes or lesions noted and turgor normal Course Vital Signs: Vital signs: Vital Signs Temperature 98.5 F 04/10/22 15:57 Pulse Rate 120 H 04/10/22 15:57 Blood Pressure 113/73 04/10/22 15:57 Pulse Oximetry 93 04/10/22 15:57 Oxygen Delivery Me thod 04/10/22 15:57 MDM - Alcohol Medical Decision Making 61-year-old male who is here voluntarily to get detox from alcohol. He has been making phone calls along with friend about getting rehabilitation outpatient but they will require him to have inpatient detox due to the quantity of high proof vodka that he drinks every day and the fact that he starts to get withdrawal symptoms within hours. No history of seizures or delirium tremens in the past. Discussed with Dr. Oneal for admission Lab Data 04/10/22 16:41 04/10/22 16:41 Laboratory Results WBC 5.8 10^3/uL (4.0-10.0) 04/10/22 16:41 RBC 4.05 10^6/uL (4.1-5.3) L 04/10/22 16:41 Hgb 15.0 g/dL (11.7-16.6) 04/10/22 16:41 Hct 44.4 % (42.0-52.0) 04/10/22 16:41 MCV 109.6 fl (80-94) H 04/10/22 16:41 MCH 37.0 pg (28.0-34.0) H 04/10/22 16:41 MCHC 33.8 g/dL (30.0-36.0) 04/10/22 16:41 RDW 12.8 % (12.1-15.1) 04/10/22 16:41 Plt Count 159 10^3/cmm (130-400) 04/10/22 16:41 MPV 9.3 fL (7.4-10.4) 04/10/22 16:41 Neut % (Auto) 77.4 % 04/10/22 16:41 Lymph % (Auto) 10.8 % 04/10/22 16:41 [place] % (Auto) 10.5 % 04/10/22 16:41 Eos % (Auto) 0.2 % 04/10/22 16:41 Baso % (Auto) 0.9 % 04/10/22 16:41 Neut # (Auto) 4.50 10^3/uL (1.8-7.7) 04/10/22 16:41 Lymph # (Auto) 0.6 10^3/uL (0.8-4.8) L 04/10/22 16:41 [place] # (Auto) 0.6 10^3/uL (0.2-0.9) 04/10/22 16:41 Eos # (Auto) 0.0 10^3/uL (0.0-0.8) 04/10/22 16:41 Baso # (Auto) 0.1 10^3/uL (0.0-0.1) 04/10/22 16:41 Nucleated RBC % (auto) 0 % 04/10/22 16:41 Nucleated RBCs # 0.0 /100WBC 04/10/22 16:41 PT 13.80 SECONDS (12.1-14.9) 04/10/22 16:41 INR 1.03 (0.8-1.2) 04/10/22 16:41 Sodium 135 mmol/L (136-145) L 04/10/22 16:41 Potassium 4.4 mmol/L (3.5-5.1) 04/10/22 16:41 Chloride 101 mmol/L (98-107) 04/10/22 16:41 Carbon Dioxide 23 mmol/L (22-29) 04/10/22 16:41 Anion Gap 15.4 (5-19) 04/10/22 16:41 BUN 14 mg/dL (8-23) 04/10/22 16:41 Creatinine 0.7 mg/dL (0.7-1.2) 04/10/22 16:41 GFR Calculation 115.0 mL/min (90-130) 04/10/22 16:41 Glucose 126 mg/dL (65-115) H 04/10/22 16:41 Calculated Osmolality 282 mOsm/kg (285-295) L 04/10/22 16:41 Calcium 9.4 mg/dL (8.5-10.5) 04/10/22 16:41 Total Bilirubin 0.4 mg/dL (0.15-1.2) 04/10/22 16:41 AST 51 U/L (0-40) H 04/10/22 16:41 ALT 36 U/L (0-41) 04/10/22 16:41 Alkaline Phosphatase 68 U/L (40-130) 04/10/22 16:41 Total Protein 6.9 g/dL (6.6-8.7) 04/10/22 16:41 Albumin 3.6 g/dL (3.5-5.2) 04/10/22 16:41 Globulin 3.3 g/dL (1.3-4.6) 04/10/22 16:41 Salicylates < 0.3 mg/dL (3-10) L 04/10/22 16:41 Acetaminophen < 5.0 ug/mL (10-30) L 04/10/22 16:41 Ethyl Alcohol < 10 mg/dL (0-10) 04/10/22 16:41 Discharge Plan Discharge Condition: Stable Prescriptions: No Action diltiazem HCl 180 mg capsule,extended release 24hr 180 mg PO DAILY@07 tizanidine 4 mg tablet 4 mg PO BEDTIME@2200 pantoprazole 40 mg tablet,delayed release (DR/EC) 40 mg PO DAILY@07 lisinopril 10 mg tablet 5 mg PO DAILY@2199 topiramate 100 mg tablet 100 mg PO BEDTIME@0 alfuzosin 10 mg tablet extended release 24 hr 10 mg PO DAILY@07 loratadine 10 mg Tablet 10 mg PO DAILY Vitamin B-1 100 mg Tablet 100 mg PO DAILY famotidine 20 mg Tablet 20 mg PO DAILY trazodone 100 mg Tablet 150 mg PO BEDTIME saw palmetto 160 mg Capsule 160 mg PO DAILY Rx Instructions: give with meal/snack folic acid 1 mg Tablet 1 mg PO DAILY montelukast 10 mg Tablet 10 mg PO DAILY L-Lysine 500 mg Tablet 500 mg PO DAILY B Complex Capsule 1 cap PO DAILY modafinil 100 mg Tablet 100 mg PO DAILY magnesium 200 mg Tablet 400 mg PO DAILY bupropion HCl 200 mg Tablet Sustained-Release 12 Hr 200 mg PO DAILY acamprosate 333 mg Tablet,Delayed Release (Dr/Ec) 666 mg PO TID Rx Instructions: administer with mid-day and evening meals desvenlafaxine succinate 100 mg Tablet Extended Release 24 Hr 100 mg PO DAILY Referrals: River Monroy [Primary Care Provider] - Coding Level of Care Code ED Wash Tub Machine Operator for Mynor Tesfaye
[2022-04-10 17:02] LABS: INR 1.03 (0.8-1.2)
[2022-04-10 17:03] LABS: Basophils # 0.1 10^3/uL (0.0-0.1); Basophils % 0.9 %; Eosinophils % 0.2 %; Hematocrit 44.4 % (42.0-52.0); Lymphocytes # 0.6 10^3/uL (0.8-4.8); Lymphocytes % 10.8 %; Mean Corpuscular HGB Conc 33.8 g/dL (30.0-36.0); Mean Corpuscular Volume 109.6 fl (80-94); Mean Platelet Volume 9.3 fL (7.4-10.4); Monocytes # 0.6 10^3/uL (0.2-0.9); Monocytes % 10.5 %; Neutrophils % 77.4 %; Nucleated Red Blood Cells % 0 %; Platelet Count 159 10^3/cmm (130-400); Red Blood Count 4.05 10^6/uL (4.1-5.3); Red Cell Distribution Width 12.8 % (12.1-15.1); White Blood Count 5.8 10^3/uL (4.0-10.0)
[2022-04-10 17:12] LABS: Alanine Aminotransferase 36 U/L (0-41); Albumin Level 3.6 g/dL (3.5-5.2); Alkaline Phosphatase 68 U/L (40-130); Anion Gap 15.4 (5-19); Aspartate Amino Transferase 51 U/L (0-40); Blood Urea Nitrogen 14 mg/dL (8-23); Calcium 9.4 mg/dL (8.5-10.5); Carbon Dioxide 23 mmol/L (22-29); Chloride 101 mmol/L (98-107); Globulin 3.3 g/dL (1.3-4.6); Glucose 126 mg/dL (65-115); Osmolality Calculated 282 mOsm/kg (285-295); Potassium 4.4 mmol/L (3.5-5.1); Sodium 135 mmol/L (136-145); Total Bilirubin 0.4 mg/dL (0.15-1.2); Total Protein 6.9 g/dL (6.6-8.7)
[2022-04-10 17:16] LABS: Acetaminophen < 5.0 ug/mL (10-30); Alcohol Level < 10 mg/dL (0-10); Salicylate < 0.3 mg/dL (3-10)
[2022-04-10] MEDS: multivitamin therapeutic Tablet 1 TAB PO (17:26)
[2022-04-10] MEDS: LORazepam 2 mg/mL INJ 1 mL IVP (17:57)
--- NOTE | 2022-04-10 18:18 | P.HP_ITS ---
Providers/Chief Complaint Admitting Physician: Fazal Oneal MD Primary Care Provider: River Monroy Chief Complaint: alcohol History of Present Illness Angel Jane is a 61 year old male with a past medical history of alcoholism, IgA nephropathy hypertension, depression who presents [facility] due to concerns for alcohol withdrawal. Patient tells me that he lives in [facility], lives by himself, since COVID he has been in isolation for about 2 years, he tells me that he drinks alcohol on a daily basis, at least 500 to 750 mL of vodka daily, he has had alcohol withdrawals in the past, but they were treated at home, no ICU admission. He denies any cardiovascular history he had an angiogram in 2019 which was normal. No history of COPD no history of smoking. No history of diabetes. No history of drug abuse. He does have IgA nephropathy used to follow with a road mechanic, he takes lisinopril for it. He does report feeling down depressed and sad, denies suicidal ideation, denies homicidal ideation, denies seeing or hearing things are not there Review of Systems Const: Denies: fever(s), chills, fatigue or malaise Eyes: Denies: change in vision ENMT: Denies: nasal congestion Resp: Denies: dyspnea, productive cough or non-productive cough GI: Denies: abdominal pain, nausea, vomiting, hematemesis or diarrhea : Denies: dysuria Musc: Denies: back pain Skin/Breast: Denies: rash Neuro: Denies: headache(s) or dizziness Endo: Denies: polyuria or polydipsia Medications/Allergies Home Medications Medication Instructions Recorded Confirmed Last Taken Type alfuzosin 10 mg tablet,extended 10 mg PO DAILY@05/15/20 04/10/22 04/10/22 Hi story release 24 hr diltiazem HCl 180 mg 180 mg PO DAILY@05/15/20 04/10/22 04/10/22 History capsule,extended release 24 hr lisinopril 10 mg tablet 5 mg PO DAILY@0 05/15/20 04/10/22 04/09/22 History loratadine 10 mg tablet 10 mg PO DAILY 05/15/20 04/10/22 04/10/22 History pantoprazole 40 mg tablet,delayed 40 mg PO DAILY@05/15/20 04/10/2221/22 History release tizanidine 4 mg tablet 4 mg PO BEDTIME@2200 05/15/20 04/10/22 04/09/22 History topiramate 100 mg tablet 100 mg PO BEDTIME@2200 05/15/20 04/10/22 04/09/22 History acamprosate 333 mg tablet,delayed 666 mg PO TID 04/10/22 04/10/22 04/10/22 History release 666 mg bupropion HCl 200 mg tablet,12 hr 200 mg PO DAILY 04/10/22 04/10/22 04/10/22 History sustained-release desvenlafaxine succinate 100 mg 100 mg PO DAILY 04/10/22 04/10/22 04/10/22 History tablet,extended release 24 hr famotidine 20 mg tablet 20 mg PO DAILY 04/10/22 04/10/22 04/10/22 History folic acid 1 mg tablet 1 mg PO DAILY 04/10/22 04/10/22 04/10/22 History lysine 500 mg tablet (L-Lysine) 500 mg PO DAILY 04/10/22 04/10/22 04/10/22 History magnesium 200 mg tablet 400 mg PO DAILY 04/10/22 04/10/22 04/10/22 History modafinil 100 mg tablet 100 mg PO DAILY 04/10/22 04/10/22 04/10/22 History montelukast 10 mg tablet 10 mg PO DAILY 04/10/22 04/10/22 04/10/22 History saw palmetto 160 mg capsule 160 mg PO DAILY 04/10/22 04/10/22 04/10/22 History thiamine HCl (vitamin B1) 100 mg 100 mg PO DAILY 04/10/22 04/10/22 04/10/22 History tablet (Vitamin B-1) trazodone 100 mg tablet 150 mg PO BEDTIME 04/10/22 04/10/22 04/09/22 History vitamin B complex 1 cap PO DAILY 04/10/22 04/10/22 04/09/22 History Allergies Allergy/AdvReac Type Severity Reaction Status Date / Time NSAIDS (Non-Steroidal Allergy Unknown Unknown Verified 08/20/20 09:57 Anti-Inflamma Penicillins Allergy Unknown Unknown Verified 08/20/20 09:57 Sulfa (Sulfonamide Allergy Unknown Unknown Verified 08/20/20 09:57 Antibiotics) PFSH Acute PFSH: Medical History Alcohol abuse No recent relapse Depression Dyslipidemia Exertional shortness of breath Hypertension Leg fracture, right 1997 right tibia and fibula Migraine headache Surgical History H/O cardiac catheterization November 2019, normal angiogram Family History Other CAD (coronary artery disease) Cancer Diabetes Social History Smoking and tobacco status: current every day smoker smokeless tobacco Alcohol intake: current Alcohol intake frequency: few times a month Household members: spouse Housing: House Vitals/I&O/Wt Last Vital Signs Temp 98.5 F 04/10/22 15:57 Pulse 113 H 04/10/22 17:31 BP 132/73 04/10/22 17:31 Pulse Ox 95 04/10/22 17:31 O2 Del Method 04/10/22 17:31 Weight last 48 hrs Weight 117.934 kg Physical Exam Const: COMMON NORMALS: no acute distress and patient oriented x3 HENMT: COMMON NORMALS: normocephalic HEAD & SCALP: normocephalic Eye: COMMON NORMALS: Equal, round and reactive pupils present and EOMs intact bilaterally Neck/C-Spine: COMMON NORMALS: no JVD Resp: COMMON NORMALS: normal respiratory effort, No retractions, No use of accessory muscles and clear to auscultation bilaterally AUSCULTATION: clear to auscultation bilaterally Cardio: COMMON NORMALS: no JVD, regular rate, regular rhythm, S1 normal heart sound present and S2 normal heart sound present RATE: regular rate RHYTHM: regular rhythm HEART SOUNDS: S1 normal heart sound present and S2 normal heart sound present GI: COMMON NORMALS: Normal to inspection, nondistended, normoactive bowel sounds present, Soft to palpation, non-tender, No hepatosplenomegaly present, no masses and no bruits PALPATION: Yes Soft to palpation and Yes No hepatosplenomegaly present Extremity: COMMON NORMALS: no calf tenderness and no pedal edema Neuro: COMMON NORMALS: patient oriented x3, CN's II-XII intact bilaterally, moves all extremities and no focal motor deficits Psych: COMMON NORMALS: mental status grossly normal Data 04/10/22 16:41 04/10/22 16:41 A&P Assessment and plan (1) Alcohol withdrawal syndrome: Plan Alcohol withdrawal -Admit to ICU -Started on prophylactic Librium -CIWA protocol -Monitor mentation closely -IV fluids -Check TSH, mag -B1, folate, IV fluids Full code Lovenox for DVT prophylaxis Attestations Medical Necessity Statement*: Patient requires hospitalization, inpatient, greater than 2 midnights due to alcohol withdrawal Coding Level of Care Code Acute Hand Woven Carpet And Rug Mender for Mynor Tesfaye Diagnoses Alcohol withdrawal syndrome F10.932
[2022-04-10 19:30] LABS: Lactic Sepsis W/Reflex 2.2 mmol/L (0.5-2.2)
[2022-04-10 19:41] LABS: Procalcitonin 0.15 ng/mL (0-0.5); Thyroid Stimulating Hormone 2.69 uIU/mL (0.27-4.20)
[2022-04-10] MEDS: enoxaparin 40 mg/0.4 mL Syringe SUBCUT (19:52)
[2022-04-10] MEDS: chlordiazePOXIDE 25 mg Capsule 50 MG PO (19:52)
[2022-04-10] MEDS: sodium chloride 0.9% 1,000 ML 75 ML IV (19:53)
[2022-04-10 20:57] LABS: Reflex Lactate Order REFLEX LACTIC ORDERD
[2022-04-10] MEDS: trazodone 150 mg Tablet PO (21:00)
[2022-04-10] MEDS: topiramate 100 mg Tablet PO (21:01)
[2022-04-10] MEDS: montelukast sodium 10 mg Tablet PO (21:01)
[2022-04-10] MEDS: buPROPion SR (12 HR) 100 mg Tablet 200 MG PO (21:01)
[2022-04-10] MEDS: tizanidine 4 mg Tablet PO (21:01)
[2022-04-10] MEDS: lisinopril 5 mg Tablet PO (21:01)
[2022-04-10 21:07] LABS: Estmated Average Glucose 94; Hemoglobin A1C 4.9 % (4.0-6.0)
[2022-04-10 21:13] LABS: Add Urine Microscopic? NO; Charge for UA Resulting for Rev
[2022-04-10 21:26] LABS: Amphetamines Screen Urine Negative (Negative); Barbiturates Screen Urine Negative (Negative); Benzodiazepines Screen Urine Positive (Negative); Cocaine Screen Urine Negative (Negative); Opiate Screen Urine Negative (Negative); PCP Screen Urine Negative (Negative); THC Screen Urine Negative (Negative)
[2022-04-10 21:29] LABS: Bilirubin Urine Neg (Negative); Blood Urine Neg (Negative); Glucose Urine UA Norm (Normal); Ketones Urine Negative (Negative); Leukocyte Esterase Urine Negative (Negative); Nitrate Urine Negative (Negative); Protein Urine Neg (Negative); Specific Gravity, Urine 1.015 (1.005-1.030); Sulfosalicylic Acid Urine Negative (Negative); Urine Appearance Clear (CLEAR); Urine Color Yellow (Yellow); Urobilinogen Urine Norm (Negative); pH Urine 9 (5-7)
[2022-04-10 22:31] LABS: Lactic Acid level (Lactate) 1.6 mmol/L (0.5-2.2)
[2022-04-11] VITALS (57 sets, daily range): BP systolic 95–147; BP diastolic 61–92; PULSE 72–104; RESP 15–29; TEMP 36.8–37.2; O2SAT 88–96
[2022-04-11] MEDS: chlordiazePOXIDE 25 mg Capsule 50 MG PO ×4 (00:28→18:17)
[2022-04-11 03:32] LABS: Basophils % 0.8 %; Eosinophils % 0.8 %; Hematocrit 39.5 % (42.0-52.0); Hemoglobin 12.9 g/dL (11.7-16.6); Lymphocytes # 1.1 10^3/uL (0.8-4.8); Lymphocytes % 21.1 %; Mean Corpuscular HGB Conc 32.7 g/dL (30.0-36.0); Mean Corpuscular Hemoglobin 36.8 pg (28.0-34.0); Mean Corpuscular Volume 112.5 fl (80-94); Mean Platelet Volume 9.7 fL (7.4-10.4); Monocytes # 0.8 10^3/uL (0.2-0.9); Monocytes % 16.7 %; Neutrophils # 3.01 10^3/uL (1.8-7.7); Neutrophils % 60.4 %; Nucleated Red Blood Cells % 0 %; Platelet Count 139 10^3/cmm (130-400); Red Blood Count 3.51 10^6/uL (4.1-5.3); Red Cell Distribution Width 13.1 % (12.1-15.1)
[2022-04-11 03:53] LABS: Alanine Aminotransferase 28 U/L (0-41); Albumin Level 3.2 g/dL (3.5-5.2); Alkaline Phosphatase 54 U/L (40-130); Aspartate Amino Transferase 43 U/L (0-40); Blood Urea Nitrogen 14 mg/dL (8-23); Carbon Dioxide 26 mmol/L (22-29); Chloride 105 mmol/L (98-107); Globulin 2.5 g/dL (1.3-4.6); Glomerular Filtration Rate 98.6 mL/min (90-130); Glucose 97 mg/dL (65-115); Magnesium 2.2 mg/dL (1.7-2.3); Osmolality Calculated 290 mOsm/kg (285-295); Phosphorus 3.8 mg/dL (2.5-4.5); Sodium 140 mmol/L (136-145); Total Bilirubin 0.4 mg/dL (0.15-1.2); Total Protein 5.7 g/dL (6.6-8.7)
[2022-04-11] MEDS: alfuzosin 10 mg ER Tablet PO (06:24)
[2022-04-11] MEDS: dilTIAZem ER (24HR) 180 mg Capsule PO (06:24)
[2022-04-11] MEDS: pantoprazole DR 40 mg Tablet PO (06:24)
[2022-04-11] MEDS: folic acid 1 mg Tablet PO (08:45)
[2022-04-11] MEDS: magnesium oxide 400 mg tablet PO (08:45)
[2022-04-11] MEDS: buPROPion SR (12 HR) 100 mg Tablet 200 MG PO ×2 (08:45→18:18)
[2022-04-11] MEDS: multivitamin therapeutic Tablet 1 TAB PO (08:46)
[2022-04-11] MEDS: thiamine 100 mg Tablet PO (08:46)
[2022-04-11] MEDS: sodium chloride 0.9% 1,000 ML 75 ML IV ×2 (08:56→22:47)
[2022-04-11] MEDS: desvenlafaxine 50 mg Tablet 100 MG PO (10:00)
--- NOTE | 2022-04-11 11:32 | PC.CHAP ---
Pastoral Care Encounter/Spiritual Assessment Type of Contact [] Declined music promoter visit [] Patient/Family/Request visit [] Outpatient visit [] Follow-up visit [] Physician referral [] Code/Alert [x] Routine visit [] Staff referral [] Actively dying [x] Patient sleeping [] Family support [] [] Out of room [] Palliative care [] [] Receiving care in room [] Pre-surgical visit [] Trauma [] Long length of stay [x] ICU visit [] Other: Relational/Emotional Strength [] Patient feels connected with others/family/visitors/staff [] Distress [] Loneliness/isolation [] Abandonment Spirituality of Patient [] Person of Julieta [] Attends Evangelical of their [place] [] Believes in Prayer [] Reads Bible or Anabaptism materials [] There are Spiritual issues to be addressed Air Crew Member Interventions [x] Prayer [] Active listening [] Non-anxious presence [] Spiritual/emotional support [] Crisis/trauma care [] Spiritual counseling [] Bereavement support [] Provided bereavement packet [] Provided Bible/devotional materials [] Provided toy/stuffed animal, coloring book to patient or family member [] Provided Communion [] Anointing/[place] [] Salvation [x] Completed spiritual assessment [] Other: Impact on Illness or Injury [] Angry [] Fearful [] Anxious [] Often cries [] Exhaustion [] Unable to work [] Unable to attend yarsanism [] Unable to walk/stand [] Unable to read [] Unable to drive [] Unable to eat/drink [] Unable to sleep [] Unable to be with family [] Patient intubated [] Other: Summary Time spent with patient
--- NOTE | 2022-04-11 12:38 | P.PN_ITS ---
Subjective Subjective: Patient was seen this morning, he continues to have tremors, more visible this morning, denies seeing or hearing things are not there Vitals/I&O/Wt Last Vital Signs Temp 98.3 F 04/11/22 05:00 Pulse 89 04/11/22 12:00 Resp 19 H 04/11/22 12:00 BP 127/80 04/11/22 12:00 Pulse Ox 93 04/11/22 12:00 O2 Del Method 04/11/22 02:56 04/10/22 04/11/22 04/11/22 22:59 06:59 14:59 Intake Total 480 / 480 480 / 960 1218.75 / 1218.75 Output Total 90 / 90 825 / 915 1450 / 1450 Balance 390 / 390 -345 / 45 -231.25 / -231.25 Weight last 48 hrs Weight 117.979 kg Weight 117.934 kg Physical Exam Const: COMMON NORMALS: no acute distress and patient oriented x3 Resp: COMMON NORMALS: normal respiratory effort, No retractions, No use of accessory muscles and clear to auscultation bilaterally AUSCULTATION: clear to auscultation bilaterally Cardio: COMMON NORMALS: regular rate, regular rhythm, S1 normal heart sound p resent and S2 normal heart sound present RATE: regular rate RHYTHM: regular rhythm HEART SOUNDS: S1 normal heart sound present and S2 normal heart sound present GI: COMMON NORMALS: Normal to inspection, nondistended, normoactive bowel sounds present, Soft to palpation and non-tender PALPATION: Yes Soft to palpation Extremity: COMMON NORMALS: no pedal edema Neuro: COMMON NORMALS: patient oriented x3 Psych: COMMON NORMALS: mental status grossly normal Data 04/11/22 02:20 04/11/22 02:20 A&P Assessment and plan (1) Alcohol withdrawal syndrome: Plan Alcohol withdrawal -Admit to ICU -Started on prophylactic Librium -CIWA protocol -Monitor mentation closely -IV fluids -B1, folate, IV fluids Full code Lovenox for DVT prophylaxis Attestations Medical Necessity Statement*: Patient requires hospitalization for alcohol withdrawal and for general medical floors if he clinically improves Coding Level of Care Code Acute Annual Giving Director for [facility] Fwd Diagnoses Alcohol withdrawal syndrome F10.763
[2022-04-11] MEDS: enoxaparin 40 mg/0.4 mL Syringe SUBCUT (18:18)
[2022-04-11] MEDS: montelukast sodium 10 mg Tablet PO (21:02)
[2022-04-11] MEDS: trazodone 150 mg Tablet PO (21:02)
[2022-04-11] MEDS: lisinopril 5 mg Tablet PO (21:02)
[2022-04-11] MEDS: topiramate 100 mg Tablet PO (21:02)
[2022-04-11] MEDS: tizanidine 4 mg Tablet PO (21:02)
[2022-04-12] VITALS (47 sets, daily range): BP systolic 46–130; BP diastolic 36–87; PULSE 67–126; RESP 16–40; TEMP 36.2–37.3; O2SAT 90–100
[2022-04-12] MEDS: chlordiazePOXIDE 25 mg Capsule 50 MG PO ×3 (00:17→12:46)
[2022-04-12 03:50] LABS: Basophils % 0.6 %; Eosinophils # 0.1 10^3/uL (0.0-0.8); Eosinophils % 1.7 %; Hematocrit 40.4 % (42.0-52.0); Hemoglobin 12.9 g/dL (11.7-16.6); Lymphocytes # 0.9 10^3/uL (0.8-4.8); Lymphocytes % 25.1 %; Mean Corpuscular HGB Conc 31.9 g/dL (30.0-36.0); Mean Corpuscular Volume 112.8 fl (80-94); Mean Platelet Volume 9.6 fL (7.4-10.4); Monocytes # 0.5 10^3/uL (0.2-0.9); Monocytes % 14.2 %; Neutrophils # 2.09 10^3/uL (1.8-7.7); Neutrophils % 58.1 %; Nucleated Red Blood Cells % 0 %; Platelet Count 130 10^3/cmm (130-400); Red Blood Count 3.58 10^6/uL (4.1-5.3); Red Cell Distribution Width 12.9 % (12.1-15.1); White Blood Count 3.6 10^3/uL (4.0-10.0)
[2022-04-12 04:06] LABS: Alanine Aminotransferase 26 U/L (0-41); Albumin Level 3.1 g/dL (3.5-5.2); Alkaline Phosphatase 58 U/L (40-130); Anion Gap 12.4 (5-19); Aspartate Amino Transferase 39 U/L (0-40); Blood Urea Nitrogen 13 mg/dL (8-23); Calcium 8.6 mg/dL (8.5-10.5); Carbon Dioxide 22 mmol/L (22-29); Chloride 109 mmol/L (98-107); Globulin 2.5 g/dL (1.3-4.6); Glomerular Filtration Rate 86.1 mL/min (90-130); Glucose 115 mg/dL (65-115); Magnesium 2.1 mg/dL (1.7-2.3); Osmolality Calculated 291 mOsm/kg (285-295); Phosphorus 3.4 mg/dL (2.5-4.5); Potassium 3.4 mmol/L (3.5-5.1); Sodium 140 mmol/L (136-145); Total Bilirubin 0.3 mg/dL (0.15-1.2); Total Protein 5.6 g/dL (6.6-8.7)
[2022-04-12] MEDS: alfuzosin 10 mg ER Tablet PO (06:15)
[2022-04-12] MEDS: pantoprazole DR 40 mg Tablet PO (06:15)
[2022-04-12] MEDS: dilTIAZem ER (24HR) 180 mg Capsule PO (06:15)
--- NOTE | 2022-04-12 07:05 | PC.NURSE ---
Bedside report completed with AZAM Martinez
[2022-04-12] MEDS: potassium chloride ER 20 mEq Tablet 40 MEQ PO (09:09)
[2022-04-12] MEDS: buPROPion SR (12 HR) 100 mg Tablet 200 MG PO ×2 (09:10→18:22)
[2022-04-12] MEDS: desvenlafaxine 50 mg Tablet 100 MG PO (09:10)
[2022-04-12] MEDS: folic acid 1 mg Tablet PO (09:11)
[2022-04-12] MEDS: multivitamin therapeutic Tablet 1 TAB PO (09:11)
[2022-04-12] MEDS: thiamine 100 mg Tablet PO (09:11)
[2022-04-12] MEDS: magnesium oxide 400 mg tablet PO (09:11)
--- NOTE | 2022-04-12 10:21 | PC.CHAP ---
Pastoral Care Encounter/Spiritual Assessment Type of Contact [] Declined construction representative visit [] Patient/Family/Request visit [] Outpatient visit [] Follow-up visit [] Physician referral [] Code/Alert [x] Routine visit [] Staff referral [] Actively dying [x] Patient sleeping [x] Family support [] [] Out of room [] Palliative care [] [] Receiving care in room [] Pre-surgical visit [] Trauma [] Long length of stay [x] ICU visit [] Other: Relational/Emotional Strength [] Patient feels connected with others/family/visitors/staff [] Distress [] Loneliness/isolation [] Abandonment Spirituality of Patient [] Person of Julieta [] Attends Islam of their [place] [] Believes in Prayer [] Reads Bible or Jew materials [] There are Spiritual issues to be addressed Stockroom Worker Interventions [x] Prayer [] Active listening [] Non-anxious presence [] Spiritual/emotional support [] Crisis/trauma care [] Spiritual counseling [] Bereavement support [] Provided bereavement packet [] Provided Bible/devotional materials [] Provided toy/stuffed animal, coloring book to patient or family member [] Provided Communion [] Anointing/[place] [] Salvation [x] Completed spiritual assessment [] Other: Impact on Illness or Injury [] Angry [] Fearful [] Anxious [] Often cries [] Exhaustion [] Unable to work [] Unable to attend jehovah's witness [] Unable to walk/stand [] Unable to read [] Unable to drive [] Unable to eat/drink [] Unable to sleep [] Unable to be with family [] Patient intubated [] Other: Summary Time spent with patient
--- NOTE | 2022-04-12 12:41 | PM.PN ---
Subjective Subjective: patient was seen this morning, he has no complaints of chest pain or sob, but does have tremors Vitals/I&O/Wt Last Vital Signs Temp 98.7 F 04/12/22 08:30 Pulse 100 04/12/22 10:30 Resp 20 H 04/12/22 10:30 BP 107/63 04/12/22 10:30 Pulse Ox 92 04/12/22 10:00 O2 Del Method 04/12/22 10:30 04/11/22 04/12/22 04/12/22 22:59 06:59 14:59 Intake Total 1480 / 2938.75 480 / 3418.75 500 / 500 Output Total 750 / 2600 700 / 700 Balance 730 / 338.75 480 / 818.75 -200 / -200 Weight last 48 hrs Weight 117.979 kg Weight 117.934 kg Physical Exam Const: COMMON NORMALS: no acute distress and patient oriented x3 OTHER: has gross tremors presents Resp: COMMON NORMALS: normal respiratory effort, No retractions, No use of accessory muscles and clear to auscultation bilaterally AUSCULTATION: clear to auscultation bilaterally Cardio: COMMON NORMALS: regular rate, regular rhythm, S1 normal heart sound present and S2 normal heart sound present RATE: regular rate RHYTHM: regular rhythm HEART SOUNDS: S1 normal heart sound present and S2 normal heart sound present GI: COMMON NORMALS: Normal to inspection, nondistended, normoactive bowel sounds present and non-tender Extremity: COMMON NORMALS: no pedal edema Neuro: COMMON NORMALS: patient oriented x3 Psych: COMMON NORMALS: mental status grossly normal Data 04/12/22 02:26 04/12/22 02:26 A&P Assessment and plan (1) Alcohol withdrawal syndrome: Plan Alcohol withdrawal -[facility] Librium -CIWA protocol -Monitor mentation closely -IV fluids stopped -B1, folate, IV fluids Full code Lovenox for DVT prophylaxis Attestations Medical Necessity Statement*: patient requires hospitalization for alcohol withdrawl Coding Level of Care Code Acute Diamond Die Maker for [facility] Diagnoses Alcohol withdrawal syndrome F10.939
[2022-04-12] MEDS: sodium chloride 0.9% 1,000 ML 75 ML IV (12:46)
--- NOTE | 2022-04-12 15:07 | PC.NURSE ---
Called Medsurg to give transfer report, Staff in huddle, nurse to call back.
--- NOTE | 2022-04-12 15:35 | PC.NURSE ---
[facility]
--- NOTE | 2022-04-12 15:45 | PC.NURSE ---
Pt transferred to room 260 via W/C. All belongings with patient.
[2022-04-12] MEDS: chlordiazePOXIDE 25 mg Capsule PO (18:22)
[2022-04-12] MEDS: enoxaparin 40 mg/0.4 mL Syringe SUBCUT (18:23)
[2022-04-12] MEDS: tizanidine 4 mg Tablet PO (21:01)
[2022-04-12] MEDS: montelukast sodium 10 mg Tablet PO (21:02)
[2022-04-12] MEDS: topiramate 100 mg Tablet PO (21:02)
[2022-04-12] MEDS: lisinopril 5 mg Tablet PO (21:02)
[2022-04-12] MEDS: trazodone 150 mg Tablet PO (21:02)
--- NOTE | 2022-04-12 22:05 | PC.NURSE ---
This nurse entered the room after hearing a loud thud, patient was lying in the floor face down with arms at side, near sink. Patient's other nurse, AZAM Teran was also present in room. Patient was unresponsive, appeared to be having a seizure. Patient appeared to be gasping for air, patient's face was purple. Patient lost control of bladder and urinated on self. Patient was turned onto side, patient's breathing was labored. Patient was found to have a bloody nose as well. A rapid response was called. Patient slowly started becoming obtunded with pupils sluggish but reactive. Vital were obtained. Patient was carried to bed on blanket with total assist. Patient started becoming more alert but could not recall previous events.
--- NOTE | 2022-04-12 22:16 | CTR_ITS ---
PROCEDURE INFORMATION: Exam: CT Head Without Contrast Exam date and time: 04/12/2022 10:36 PM Age: 61 years old Clinical indication: Injury or trauma; Fall; Blunt trauma (contusions or hematomas); Patient HX: Patient fell face forward onto floor. Epistaxis noted. ; Additional info: Fall, hit head TECHNIQUE: Imaging protocol: Computed tomography of the head without contrast. Radiation optimization: All CT scans at this facility use at least one of these dose optimization techniques: automated exposure control; mA and/or kV adjustment per patient size (includes targeted exams where dose is matched to clinical indication); or iterative reconstruction. COMPARISON: No relevant prior studies available. RADIATION DOSE METRICS: Total DLP (mGy-cm): 1101.48 FINDINGS: Brain: Normal. No hemorrhage. Unremarkable white matter. No mass effect. Cerebral ventricles: No ventriculomegaly. Paranasal sinuses: Visualized sinuses are unremarkable. No fluid levels. Mastoid air cells: Visualized mastoid air cells are well aerated. Bones/joints: Unremarkable. No acute fracture. Soft tissues: Unremarkable. CT/CT head wo con* [id number] IMPRESSION: No acute intracranial abnormality.
--- NOTE | 2022-04-12 22:21 | ECG_ITS ---
[facility] Test Date: 2022-04-12 Pat Name: Angel Jane Department: Room: ICU08 Gender: Male Voltage Tester: : 1960 Requested By: Brayan Petersen Order Number: [id number] Caro MD: Shandra Ybarra M.D. Measurements Intervals [place] Rate: 130 P: 65 ND: 153 QRS: 111 QRSD: 94 T: 40 QT: 288 QTc: 425 Interpretive Statements SINUS TACHYCARDIA INCOMPLETE RIGHT BUNDLE BRANCH BLOCK [90+ ms QRS DURATION, TERMINAL R IN V1/V2, 40+ ms S IN I/aVL/V4/V5/V6] POSSIBLE RIGHT VENTRICULAR HYPERTROPHY [SOME/ALL OF: PROMINENT R IN V1, LATE TRANSITION, RAD, JOSE ELIAS, SSS] MODERATE ST DEPRESSION [0.05+ mV ST DEPRESSION] INTERPRETATION BASED ON A DEFAULT AGE OF 40 YEARS Compared to ECG 05/15/2020 13:51:33 Incomplete right bundle-branch block now present Atrial abnormality now present ST (T wave) deviation now present Sinus rhythm no longer present Electronically Signed On 04-13-2022 12:35:53 JIGGER ARTISAN by Shandra Ybarra M.D. [id number]
--- NOTE | 2022-04-12 22:22 | CTR_ITS ---
PROCEDURE INFORMATION: Exam: CTA Chest With Contrast Exam date and time: 04/12/2022 10:39 PM Age: 61 years old Clinical indication: Injury or trauma; Fall; Shortness of breath; Blunt trauma (contusions or hematomas); Patient HX: Patient fell tonight in inpatient room while going to bathroom. Patient found to be very hypoxic and hypotensive with tachycardia when put back on monitor. ; Additional info: Rule out pe TECHNIQUE: Imaging protocol: Computed tomographic angiography of the chest with contrast. 3D rendering (Not supervised by radiologist): MIP and/or 3D reconstructed images were created by the technologist. Radiation optimization: All CT scans at this facility use at least one of these dose optimization techniques: automated exposure control; mA and/or kV adjustment per patient size (includes targeted exams where dose is matched to clinical indication); or iterative reconstruction. Contrast material: OMNI 350; Contrast volume: 80 ml; Contrast route: INTRAVENOUS (IV); COMPARISON: CR XR chest 1V portable [id number] 05/15/2020 1:15 PM RADIATION DOSE METRICS: Total DLP (mGy-cm): 541.88 FINDINGS: Pulmonary arteries: There are large filling defects in the pulmonary arteries throughout both lungs consistent with a large pulmonary embolus burden. There is no saddle embolus. Aorta: Unremarkable. No aortic aneurysm. No aortic dissection. Lungs: There are scattered granulomas in both lungs. Pleural spaces: Unremarkable. No pneumothorax. No pleural effusion. Heart: The heart is slightly enlarged and the RV/LV ratio is 1.7. Lymph nodes: Calcified lymph nodes in the mediastinum and ivory may be due to prior granulomatous disease or treated lymphoma. Bones/joints: There is surgical fixation hardware on the left clavicle and lower cervical spine which appears intact. Soft tissues: Unremarkable. CT/CT angio chest PE protcl [id number] IMPRESSION: Large pulmonary embolus burden throughout both lungs with right heart strain.
--- NOTE | 2022-04-12 22:33 | W.PM.EVENTAC ---
Event Notes Attestations Time Spent in Patient Care: Rapid response was called when patient fell while he was getting into the bathroom Patient fell face forward and hit his nose on the floor noticed mild bleeding Postictal confusion noticed Blood glucose 97 Patient was hypoxic saturating 87% he was put on nonrebreather mask 15 L which improved his O2 saturation I started him on 1 L bolus when blood pressure was checked it map was 71mmhg Patient was back to normal after 2 minutes We got him up from floor with the help of a blanket and put him on the bed in Trendelenburg position I gave him 1 L bolus, EKG showed sinus tachycardia heart rate in 130s Patient was saturating 81% on 15 L nonrebreather mask He was complaining of chest heaviness however no active chest pain Morbidly obese male Who was found on the floor, his clothes were soiled with urine There was urine on the floor as well. Confusion Nosebleed stopped Able to follow commands No active signs of stroke Pupils are reactive to light They are pretty sluggish during postictal phase S1, S2 sinus tachycardia Bilateral breath sounds I do not appreciate any crackles Assessment plan Alcohol-related seizure with postictal phase, syncope [facility] labs, blood sugar 97 mg/dL Requested EKG set of troponins D-dimer CT head without contrast and then I will do CTA angiogram to rule out PE because patient is hypoxic, tachycardic Alcohol withdrawal seizure, postictal phase Rule out cause of syncope vasovagal versus PE Will request echo in the morning Transfer to ICU We will give him bolus, start normal saline with potassium supplement Magnesium is normal Keep Levophed on board if needed overnight
[2022-04-12 22:36] LABS: Glucose Point of Care 97 mg/dL (70-110)
[2022-04-12] MEDS: iohexol 350 mg/mL 500 mL Btl (per mL) IV (22:51)
[2022-04-12] MEDS: heparin drip 25,000 UNIT/500 ML PREMIX 34 UNIT IV (22:59)
[2022-04-12] MEDS: heparin 5,000 unit/mL INJ 1 mL IV (23:05)
[2022-04-12] MEDS: sodium chloride 0.9% 1,000 ML 999 ML IV (23:10)
[2022-04-12] MEDS: lactated ringers 1,000 ML 999 ML IV (23:22)
[2022-04-12 23:31] LABS: Platelet Count 127 10^3/cmm (130-400)
--- NOTE | 2022-04-12 23:40 | ECG_ITS ---
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 Measurements Intervals [place] Rate: 120 P: 50 IL: 155 QRS: 100 QRSD: 101 T: -9 QT: 330 QTc: 467 Interpretive Statements SINUS TACHYCARDIA BORDERLINE RIGHT AXIS DEVIATION [QRS AXIS > 90] LOW QRS VOLTAGE IN PRECORDIAL LEADS [QRS DEFLECTION < 1.0 mV IN CHEST LEADS] MODERATE ST DEPRESSION [0.05+ mV ST DEPRESSION] ABNORMAL QRS-T ANGLE [QRS-T AXIS DIFFERENCE > 60] INTERPRETATION BASED ON A DEFAULT AGE OF 40 YEARS Compared to ECG 04/12/2022 22:22:45 Low QRS voltage now present Incomplete right bundle-branch block no longer present Atrial abnormality no longer present ST (T wave) deviation still present Electronically Signed On 04-13-2022 12:36:25 CRANE MAN by Shandra Ybarra M.D. [id number]
[2022-04-12] MEDS: morphine 4 mg/mL SDV 1 mL 2 MG IVP (23:45)
[2022-04-12 23:48] LABS: Troponin T (5th) Once 47 ng/L (0-15)
[2022-04-12 23:50] LABS: Albumin Level 2.9 g/dL (3.5-5.2); Alkaline Phosphatase 80 U/L (40-130); Blood Urea Nitrogen 12 mg/dL (8-23); Calcium 8.1 mg/dL (8.5-10.5); Carbon Dioxide 18 mmol/L (22-29); Globulin 2.9 g/dL (1.3-4.6); Glomerular Filtration Rate 86.1 mL/min (90-130); Glucose 143 mg/dL (65-115); Osmolality Calculated 290 mOsm/kg (285-295); Sodium 139 mmol/L (136-145); Total Bilirubin 0.4 mg/dL (0.15-1.2); Total Protein 5.8 g/dL (6.6-8.7)
[2022-04-12 23:51] LABS: Lactic Sepsis W/Reflex 2.7 mmol/L (0.5-2.2)
[2022-04-12] MEDS: sodium chloride 0.9% 1,000 ML 100 ML IV (23:52)
[2022-04-12 23:57] LABS: NT Pro B Type Natriuretic Pept 29 pg/mL (0-125)
[2022-04-13] VITALS (14 sets, daily range): BP systolic 96–134; BP diastolic 69–106; PULSE 124–129; RESP 21–39; TEMP 36.9; O2SAT 89–99
--- NOTE | 2022-04-13 00:14 | PC.NURSE ---
Critical report called for CTA results. Physician notified.
--- NOTE | 2022-04-13 00:22 | XRR_ITS ---
PROCEDURE INFORMATION: Exam: XR Right Shoulder Exam date and time: 04/13/2022 12:39 AM Age: 61 years old Clinical indication: Injury or trauma; Blunt trauma (contusions or hematomas); Shoulder; Right; Prior surgery; Surgery type: Cervical fusion; Patient HX: C/O pain post fall last night. ; Additional info: Right shoulder trauma from fall TECHNIQUE: Imaging protocol: Radiologic exam of the Right shoulder. Views: 2 or more views. COMPARISON: CT angio chest PE protcl [id number] 04/12/2022 10:39 PM FINDINGS: Bones/joints: There are mild degenerative changes at the AC joint. Normal alignment. No acute fractures. Soft tissues: Normal. XR/XR shoulder RT min 2V* [id number] IMPRESSION: No acute injury.
[2022-04-13 00:28] LABS: D Dimer 7.35 ug/mIFEU (0-0.59)
--- NOTE | 2022-04-13 00:48 | PM.TDS ---
Transfer Summary Providers Date of Admission: 04/10/22 17:40 Date of Discharge/Transfer: 04/13/22 Attending Provider at Admission: Fazal Oneal MD Attending Provider at Transfer: Fazal Oneal MD Primary Care Provider: River Singhno Transfer Plans: Anticipated date of transfer: 04/13/22. Diagnoses at Discharge Discharge Diagnosis (1) Alcohol withdrawal syndrome: Status: Acute Reason for Visit Reason for Visit alcohol Hospital Course Hospital Course 61 male who was admitted on 04/10 for signs and symptoms of alcohol withdrawal, he had a syncopal event on 04/12 creatinine response was called, patient was hypoxic requiring 15 L nonrebreather mask he was sinus tachycardic heart rate in 130s, he was hypotensive, he received 1 L bolus, CT head unremarkable, CTA chest was done to rule out PE it is showing bilateral pulmonary embolism with right heart strain, RV to LV ratio 1.7, patient is complaining of on and off chest pain, he is currently requiring Levophed at 4 mics, he is awake and alert Patient and family agreeable for the transfer, he has been accepted at [facility], Dr. Hill will be the accepting physician for possible catheter directed thrombectomy D-dimer 7, he has received 2 L of bolus, heparin drip were started right away, EKG showing sinus tachycardia, BNP 29, troponin fifth generation 47 FINDINGS: Pulmonary arteries: There are large filling defects in the pulmonary arteries throughout both lungs consistent with a large pulmonary embolus burden. There is no saddle embolus. Aorta: Unremarkable. No aortic aneurysm. No aortic dissection. Lungs: There are scattered granulomas in both lungs. Pleural spaces: Unremarkable. No pneumothorax. No pleural effusion. Heart: The heart is slightly enlarged and the RV/LV ratio is 1.7. Lymph nodes: Calcified lymph nodes in the mediastinum and ivory may be due to prior granulomatous disease or treated lymphoma. Bones/joints: There is surgical fixation hardware on the left clavicle and lower cervical spine which appears intact. Soft tissues: Unremarkable. CT/CT angio chest PE protcl [id number] IMPRESSION: Large pulmonary embolus burden throughout both lungs with right heart strain. Physical Exam Narrative: Patient is awake and alert Nonfocal neuro exam GCS 15 Abdomen soft Radial S1-S2, sinus tachycardia Currently on nonrebreather mask 15 L Levophed running at 4 mics Patient is getting second bag of IV fluid bolus TS Data Studies Completed and Pending Pending at discharge Category Date Time Status XR shoulder RT min 2V* [id number] Stat Exams 04/13/22 00:22 Taken Complete Blood Count w/Auto AM LABS Lab 04/13/22 04:00 Ordered Comprehensive Metabolic Panel AM LABS Lab 04/13/22 04:00 Ordered Comprehensive Metabolic Panel Routine Lab 04/12/22 23:18 Results Magnesium AM LABS Lab 04/13/22 04:00 Ordered PTT [Partial Thromboplastin Time] Timed Lab 04/13/22 05:00 Ordered Phosphorus AM LABS Lab 04/13/22 04:00 Ordered Platelet Count Q2D Lab 04/14/22 04:00 Ordered Platelet Count Q2D Lab 04/16/22 04:00 Ordered Troponin(5th) 2 Hour. Timed Lab 04/13/22 01:18 Ordered Troponin(5th) 6 hour. Timed Lab 04/13/22 05:18 Ordered CV. echo wo/w contrast [id number] Routine Ultrasound 04/12/22 22:43 Ordered Labs from last 24 hours 04/12/22 04/12/22 04/12/22 23:18 23:18 23:18 WBC RBC Hgb Hct MCV MCH MCHC RDW Plt Count MPV Neut % (Auto) Lymph % (Auto) [place] % (Auto) Eos % (Auto) Baso % (Auto) Neut # (Auto) Lymph # (Auto) [place] # (Auto) Eos # (Auto) Baso # (Auto) Nucleated RBC % (auto) Nucleated RBCs # D-Dimer 7.35 H Sodium 139 Potassium Pending Chloride Pending Carbon Dioxide Pending Anion Gap Pending BUN 12 Creatinine 0.9 GFR Calculation Pending Glucose Pending POC Glucose Calculated Osmolality 290 Lactic Acid Calcium Pending Phosphorus Magnesium Total Bilirubin 0.4 AST Pending ALT Pending Alkaline Phosphatase 80 Troponin T Gen 5 ng/L 47 H NT-Pro-B Natriuret Pep Total Protein Pending Albumin Pending Globulin 2.9 Prolactin 04/12/22 04/12/22 04/12/22 23:18 23:18 23:18 WBC RBC Hgb Hct MCV MCH MCHC RDW Plt Count 127 L MPV Neut % (Auto) Lymph % (Auto) [place] % (Auto) Eos % (Auto) Baso % (Auto) Neut # (Auto) Lymph # (Auto) [place] # (Auto) Eos # (Auto) Baso # (Auto) Nucleated RBC % (auto) Nucleated RBCs # D-Dimer Sodium Potassium Chloride Carbon Dioxide Anion Gap BUN Creatinine GFR Calculation Glucose POC Glucose Calculated Osmolality Lactic Acid 2.7 H Calcium Phosphorus Magnesium Total Bilirubin AST ALT Alkaline Phosphatase Troponin T Gen 5 ng/L NT-Pro-B Natriuret Pep 29 Total Protein Albumin Globulin Prolactin 04/12/22 04/12/22 04/12/22 22:24 22:24 22:24 WBC RBC Hgb Hct MCV MCH MCHC RDW Plt Count MPV Neut % (Auto) Lymph % (Auto) [place] % (Auto) Eos % (Auto) Baso % (Auto) Neut # (Auto) Lymph # (Auto) [place] # (Auto) Eos # (Auto) Baso # (Auto) Nucleated RBC % (auto) Nucleated RBCs # D-Dimer Cancelled Sodium Cancelled Potassium Cancelled Chloride Cancelled Carbon Dioxide Cancelled Anion Gap Cancelled BUN Cancelled Creatinine Cancelled GFR Calculation Cancelled Glucose Cancelled POC Glucose Calculated Osmolality Cancelled Lactic Acid Calcium Cancelled Phosphorus Magnesium Total Bilirubin Cancelled AST Cancelled ALT Cancelled Alkaline Phosphatase Cancelled Troponin T Gen 5 ng/L Cancelled NT-Pro-B Natriuret Pep Total Protein Cancelled Albumin Cancelled Globulin Cancelled Prolactin Cancelled 04/12/22 04/12/22 04/12/22 22:07 02:26 02:26 WBC 3.6 L RBC 3.58 L Hgb 12.9 Hct 40.4 L MCV 112.8 H MCH 36.0 H MCHC 31.9 RDW 12.9 Plt Count 130 MPV 9.6 Neut % (Auto) 58.1 Lymph % (Auto) 25.1 [place] % (Auto) 14.2 Eos % (Auto) 1.7 Baso % (Auto) 0.6 Neut # (Auto) 2.09 Lymph # (Auto) 0.9 [place] # (Auto) 0.5 Eos # (Auto) 0.1 Baso # (Auto) 0.0 Nucleated RBC % (auto) 0 Nucleated RBCs # 0.0 D-Dimer Sodium 140 Potassium 3.4 L Chloride 109 H Carbon Dioxide 22 Anion Gap 12.4 BUN 13 Creatinine 0.9 GFR Calculation 86.1 L Glucose 115 POC Glucose 97 Calculated Osmolality 291 Lactic Acid Calcium 8.6 Phosphorus 3.4 Magnesium 2.1 Total Bilirubin 0.3 AST 39 ALT 26 Alkaline Phosphatase 58 Troponin T Gen 5 ng/L NT-Pro-B Natriuret Pep Total Protein 5.6 L Albumin 3.1 L Globulin 2.5 Prolactin Completed Studies During Hospitalization Category Date Time Status CT angio chest PE protcl [id number] Stat Cat Scan 04/12/22 22:[address] head wo con* [id number] Stat Cat Scan 04/12/22 22:16 Completed Laboratory Last Values WBC 3.6 10^3/uL (4.0-10.0) L 04/12/22 02:26 RBC 3.58 10^6/uL (4.1-5.3) L 04/12/22 02:26 Hgb 12.9 g/dL (11.7-16.6) 04/12/22 02:26 Hct 40.4 % (42.0-52.0) L 04/12/22 02:26 MCV 112.8 fl (80-94) H 04/12/22 02:26 MCH 36.0 pg (28.0-34.0) H 04/12/22 02:26 MCHC 31.9 g/dL (30.0-36.0) 04/12/22 02:26 RDW 12.9 % (12.1-15.1) 04/12/22 02:26 Plt Count 127 10^3/cmm (130-400) L 04/12/22 23:18 MPV 9.6 fL (7.4-10.4) 04/12/22 02:26 Neut % (Auto) 58.1 % 04/12/22 02:26 Lymph % (Auto) 25.1 % 04/12/22 02:26 [place] % (Auto) 14.2 % 04/12/22 02:26 Eos % (Auto) 1.7 % 04/12/22 02:26 Baso % (Auto) 0.6 % 04/12/22 02:26 Neut # (Auto) 2.09 10^3/uL (1.8-7.7) 04/12/22 02:26 Lymph # (Auto) 0.9 10^3/uL (0.8-4.8) 04/12/22 02:26 [place] # (Auto) 0.5 10^3/uL (0.2-0.9) 04/12/22 02:26 Eos # (Auto) 0.1 10^3/uL (0.0-0.8) 04/12/22 02:26 Baso # (Auto) 0.0 10^3/uL (0.0-0.1) 04/12/22 02:26 Nucleated RBC % (auto) 0 % 04/12/22 02:26 Nucleated RBCs # 0.0 /100WBC 04/12/22 02:26 PT 13.80 SECONDS (12.1-14.9) 04/10/22 16:41 INR 1.03 (0.8-1.2) 04/10/22 16:41 D-Dimer 7.35 ug/mIFEU (0-0.59) H 04/12/22 23:18 Sodium 139 mmol/L (136-145) 04/12/22 23:18 Potassium Cancelled 04/12/22 22:24 Chloride Cancelled 04/12/22 22:24 Carbon Dioxide Cancelled 04/12/22 22:24 Anion Gap Cancelled 04/12/22 22:24 BUN 12 mg/dL (8-23) 04/12/22 23:18 Creatinine 0.9 mg/dL (0.7-1.2) 04/12/22 23:18 GFR Calculation Cancelled 04/12/22 22:24 Glucose Cancelled 04/12/22 22:24 POC Glucose 97 mg/dL (70-110) 04/12/22 22:07 Estimat Average Glucose 94 04/10/22 19:03 Hemoglobin A1c 4.9 % (4.0-6.0) 04/10/22 19:03 Calculated Osmolality 290 mOsm/kg (285-295) 04/12/22 23:18 Lactic Acid 2.7 mmol/L (0.5-2.2) H 04/12/22 23:18 Lactic Acid (Sepsis) 1.6 mmol/L (0.5-2.2) 04/10/22 22:03 Calcium Cancelled 04/12/22 22:24 Phosphorus 3.4 mg/dL (2.5-4.5) 04/12/22 02:26 Magnesium 2.1 mg/dL (1.7-2.3) 04/12/22 02:26 Total Bilirubin 0.4 mg/dL (0.15-1.2) 04/12/22 23:18 AST Cancelled 04/12/22 22:24 ALT Cancelled 04/12/22 22:24 Alkaline Phosphatase 80 U/L (40-130) 04/12/22 23:18 Troponin T Gen 5 ng/L 47 ng/L (0-15) H 04/12/22 23:18 NT-Pro-B Natriuret Pep 29 pg/mL (0-125) 04/12/22 23:18 Total Protein Cancelled 04/12/22 22:24 Albumin Cancelled 04/12/22 22:24 Globulin 2.9 g/dL (1.3-4.6) 04/12/22 23:18 Procalcitonin 0.15 ng/mL (0-0.5) 04/10/22 19:03 TSH 2.69 uIU/mL (0.27-4.20) 04/10/22 19:03 Prolactin Cancelled 04/12/22 22:24 Urine Color Yellow (Yellow) 04/10/22 21:09 Urine Appearance Clear (CLEAR) 04/10/22 21:09 Urine pH 9 (5-7) H 04/10/22 21:09 Ur Specific Henriette 1.015 (1.005-1.030) 04/10/22 21:09 Urine Protein Neg (Negative) 04/10/22 21:09 Urine Glucose (UA) Norm (Normal) 04/10/22 21:09 Urine Ketones Negative (Negative) 04/10/22 21:09 Urine Blood Neg (Negative) 04/10/22 21:09 Urine Nitrate Negative (Negative) 04/10/22 21:09 Urine Bilirubin Neg (Negative) 04/10/22 21:09 Prot Sulfosalicylic Acd Negative (Negative) 04/10/22 21:09 Urine Urobilinogen Norm mg/dL (Negative) 04/10/22 21:09 Ur Leukocyte Esterase Negative (Negative) 04/10/22 21:09 Salicylates < 0.3 mg/dL (3-10) L 04/10/22 16:41 Urine Opiates Screen Negative ng/mL (Negative) 04/10/22 21:09 Acetaminophen < 5.0 ug/mL (10-30) L 04/10/22 16:41 Ur Barbiturates Screen Negative ng/mL (Negative) 04/10/22 21:09 Ur Phencyclidine Scrn Negative ng/mL (Negative) 04/10/22 21:09 Ur Amphetamines Screen Negative ng/mL (Negative) 04/10/22 21:09 U Benzodiazepines Scrn Positive ng/mL (Negative) H 04/10/22 21:09 Urine Cocaine Screen Negative ng/mL (Negative) 04/10/22 21:09 U Marijuana (THC) Screen Negative ng/mL (Negative) 04/10/22 21:09 Ethyl Alcohol < 10 mg/dL (0-10) 04/10/22 16:[address] 04/12/22 22:16 IMPRESSION: No acute intracranial abnormality. Chest CTA 04/12/22 22:22 IMPRESSION: Large pulmonary embolus burden throughout both lungs with right heart strain. ADDENDUM: 04/13/22 0014 THIS REPORT CONTAINS FINDINGS THAT MAY BE CRITICAL TO PATIENT CARE. The findings were verbally communicated via telephone conference at 12:12 AM SENIOR TRAINING SPECIALIST on 04/13/2022 with AZAM Amaro. The findings were acknowledged and understood. Recent Clincial Data Last Vital Signs Temp 99.1 F 04/12/22 20:00 Pulse 121 H 04/12/22 23:45 Resp 34 H 04/12/22 23:45 BP 94/63 04/12/22 23:45 Pulse Ox 100 04/12/22 23:45 O2 Del Method 04/12/22 23:55 O2 Flow Rate 15 04/12/22 23:55 Vital Signs Temp Pulse Resp BP Pulse Ox O2 Del Method O2 Flow Rate 04/12/22 23:45 121 H 34 H 94/63 100 Non-Rebreather 5 04/12/22 23:30 123 H 37 H 104/80 100 04/12/22 23:15 124 H 93/63 100 04/12/22 23:00 125 H 40 H 86/53 100 04/12/22 22:50 126 H 36 H 04/12/22 23:55 Non-Rebreather 15 04/12/22 22:34 46/36 04/12/22 20:00 99.1 F 91 20 H 126/85 94 04/12/22 16:00 98.3 F 90 18 130/87 94 Room Air 04/12/22 15:00 83 117/71 90 Room Air 04/12/22 14:00 79 04/12/22 14:00 75 120/83 92 Room Air 04/12/22 13:00 107 H 31 H 114/59 Room Air 04/12/22 14:00 75 120/83 Intake & Output/Weight 04/10/22 04/11/22 04/12/22 04/13/22 06:59 06:59 06:59 06:59 Intake Total 960 / 960 3418.75 / 3418.75 4767 / 4767 Output Total 915 / 915 2600 / 2600 1150 / 1150 Balance 45 / 45 818.75 / 818.75 3617 / 3617 Weight 117.979 kg Vitals Last Vital Signs Temp 99.1 F 04/12/22 20:00 Pulse 121 H 04/12/22 23:45 Resp 34 H 04/12/22 23:45 BP 94/63 04/12/22 23:45 Pulse Ox 100 04/12/22 23:45 O2 Del Method 04/12/22 23:55 O2 Flow Rate 15 04/12/22 23:55 TS Medications Medications Acetaminophen (Acetaminophen 325 Mg Tablet) 650 mg PO Q6H PRN PRN Reason: Mild/Mod Pain Or Temp >/= 101 Alfuzosin HCl (Alfuzosin 10 Mg Er Tablet) 10 mg PO DAILY@07 [facility] Last Admin: 04/12/22 06:15 Dose: 10 mg Bupropion HCl (Bupropion Sr (12 Hr) 100 Mg Tablet) 200 mg PO BID [facility] Last Admin: 04/12/22 18:22 Dose: 200 mg Chlordiazepoxide (Chlordiazepoxide 25 Mg Capsule) 25 mg PO Q6H [facility] Last Admin: 04/12/22 18:22 Dose: 25 mg Desvenlafaxine (Desvenlafaxine 50 Mg Tablet) 100 mg PO DAILY [facility] Last Admin: 04/12/22 09:10 Dose: 100 mg Diltiazem HCl (Diltiazem Er (24hr) 180 Mg Capsule) 180 mg PO DAILY@07 [facility] Last Admin: 04/12/22 06:15 Dose: 180 mg Folic Acid (Folic Acid 1 Mg Tablet) 1 mg PO DAILY [facility] Last Admin: 04/12/22 09:11 Dose: 1 mg Heparin Sodium (Porcine) (Heparin 5,000 Unit/Ml Inj 1 Ml) 0 unit IV PRN PRN; Protocol PRN Reason: Heparin weight-base protocol Last Admin: 04/12/22 23:05 Dose: 6,000 unit Sodium Chloride (Sodium Chloride 0.9%) 1,000 mls @ 100 mls/hr IV .Q10H [facility] Last Admin: 04/12/22 23:52 Dose: 100 mls/hr Norepinephrine Bitartrate 4 mg (/ Dextrose) 254 mls @ 0 mls/hr IV .Q0M [place]; Protocol Last Admin: 04/12/22 23:09 Dose: 2 mcg/min, 7.62 mls/hr Heparin Sodium/Sodium Chloride (Heparin Drip) 25,000 unit in 500 mls @ 0 mls/hr IV .Q0M [place]; Protocol Last Admin: 04/12/22 22:59 Dose: 14.41 unit/kg/hr, 34 mls/hr Lisinopril (Lisinopril 5 Mg Tablet) 5 mg PO DAILY@2200 [facility] Last Admin: 04/12/22 21:02 Dose: 5 mg Lorazepam (Lorazepam 2 Mg/Ml Inj 1 Ml) 2 mg IM Q4H PRN; Protocol PRN Reason: ALCOWD Lorazepam (Lorazepam 2 Mg/Ml Inj 1 Ml) 2 mg IVP PRN PRN; Protocol PRN Reason: WITHDRAWAL Lorazepam (Lorazepam 2 Mg Tablet) 2 mg PO Q4H PRN; Protocol PRN Reason: WITHDRAWAL Magnesium Oxide (Magnesium Oxide 400 Mg Tablet) 400 mg PO DAILY [facility] Last Admin: 04/12/22 09:11 Dose: 400 mg Montelukast Sodium (Montelukast Sodium 10 Mg Tablet) 10 mg PO BEDTIME [facility] Last Admin: 04/12/22 21:02 Dose: 10 mg Multivitamins Therapeutic (Multivitamin Therapeutic Tablet) 1 tab PO DAILY [facility] Last Admin: 04/12/22 09:11 Dose: 1 tab Non-Formulary Medication (Lysine [L-Lysine]) 500 mg PO DAILY [facility] Last Admin: 04/12/22 11:17 Dose: Not Given Non-Formulary Medication (Vitamin B Complex) 1 cap PO DAILY [facility] Last Admin: 04/12/22 11:17 Dose: Not Given Ondansetron HCl (Ondansetron 2 Mg/Ml Sdv 2 Ml) 4 mg IVP Q8H PRN PRN Reason: vomiting, or N/V if npo Pantoprazole Sodium (Pantoprazole Dr 40 Mg Tablet) 40 mg PO DAILY@07 [facility] Last Admin: 04/12/22 06:15 Dose: 40 mg Thiamine Mononitrate (Thiamine 100 Mg Tablet) 100 mg PO DAILY [facility] Last Admin: 04/12/22 09:11 Dose: 100 mg Tizanidine HCl (Tizanidine 4 Mg Tablet) 4 mg PO BEDTIME@2200 [facility] Last Admin: 04/12/22 21:01 Dose: 4 mg Topiramate (Topiramate 100 Mg Tablet) 100 mg PO BEDTIME@2200 [facility] Last Admin: 04/12/22 21:02 Dose: 100 mg Trazodone HCl (Trazodone 150 Mg Tablet) 150 mg PO BEDTIME [facility] Last Admin: 04/12/22 21:02 Dose: 150 mg Discontinued Medications Bupropion HCl (Bupropion Sr (12 Hr) 100 Mg Tablet) 200 mg PO DAILY [facility] Chlordiazepoxide (Chlordiazepoxide 25 Mg Capsule) 50 mg PO Q6H [facility] Last Admin: 04/12/22 12:46 Dose: 50 mg Enoxaparin Sodium (Enoxaparin 40 Mg/0.4 Ml Syringe) 40 mg SUBCUT Q24H [facility] Last Admin: 04/12/22 18:23 Dose: 40 mg Folic Acid (Folic Acid 1 Mg Tablet) 1 mg PO DAILY [facility] Sodium Chloride (Sodium Chloride 0.9%) 1,000 mls @ 50 mls/hr IV .Q20H [facility] Last Infusion: 04/12/22 23:08 Dose: Infused Sodium Chloride (Sodium Chloride 0.9%) 1,000 mls @ 999 mls/hr IV .Q1H1M ONE Stop: 04/12/22 23:17 Last Infusion: 04/12/22 23:10 Dose: Infused Lactated Ringer's (Lactated Ringers) 1,000 mls @ 999 mls/hr IV .Q1H1M ONE Stop: 04/12/22 23:44 Last Infusion: 04/13/22 00:06 Dose: Infused Iohexol (Iohexol 350 Mg/Ml 500 Ml Btl (Per Ml)) 0 ml IV ONCE ONE Stop: 04/12/22 22:52 Last Admin: 04/12/22 22:51 Dose: 80 ml Lorazepam (Lorazepam 2 Mg/Ml Inj 1 Ml) 2 mg IVP NOW ONE Stop: 04/10/22 17:41 Last Admin: 04/10/22 17:57 Dose: 2 mg Montelukast Sodium (Montelukast Sodium 10 Mg Tablet) 10 mg PO DAILY [place] Morphine Sulfate (Morphine 4 Mg/Ml Sdv 1 Ml) 2 mg IVP ONCE ONE Stop: 04/12/22 23:41 Last Admin: 04/12/22 23:45 Dose: 2 mg Multivitamins Therapeutic (Multivitamin Therapeutic Tablet) 1 tab PO ONCE ONE Stop: 04/10/22 16:33 Last Admin: 04/10/22 17:26 Dose: 1 tab Potassium Chloride (Potassium Chloride Er 20 Meq Tablet) 40 meq PO ONCE ONE Stop: 04/12/22 08:00 Last Admin: 04/12/22 09:09 Dose: 40 meq Thiamine HCl (Thiamine 100 Mg/Ml Sdv) 100 mg IM ONCE ONE Stop: 04/10/22 18:48 Last Admin: 04/10/22 19:50 Dose: 100 mg Allergies NSAIDS (Non-Steroidal Anti-Inflamma Allergy (Unknown, Verified 08/20/20 09:57) Unknown Penicillins Allergy (Unknown, Verified 08/20/20 09:57) Unknown Sulfa (Sulfonamide Antibiotics) Allergy (Unknown, Verified 08/20/20 09:57) Unknown Home Medications alfuzosin 10 mg tablet,extended release 24 hr 10 mg PO DAILY@05/15/20 [History Confirmed 04/10/22] diltiazem HCl 180 mg capsule,extended release 24 hr 180 mg PO DAILY@05/15/20 [History Confirmed 04/10/22] lisinopril 10 mg tablet 5 mg PO DAILY@219905/15/20 [History Confirmed 04/10/22] loratadine 10 mg tablet 10 mg PO DAILY 05/15/20 [History Confirmed 04/10/22] pantoprazole 40 mg tablet,delayed release 40 mg PO DAILY@05/15/20 [History Confirmed 04/10/22] tizanidine 4 mg tablet 4 mg PO BEDTIME@219905/15/20 [History Confirmed 04/10/22] topiramate 100 mg tablet 100 mg PO BEDTIME@219905/15/20 [History Confirmed 04/10/22] acamprosate 333 mg tablet,delayed release 666 mg PO TID 04/10/22 [History Confirmed 04/10/22] bupropion HCl 200 mg tablet,12 hr sustained-release 200 mg PO DAILY 04/10/22 [History Confirmed 04/10/22] desvenlafaxine succinate 100 mg tablet,extended release 24 hr 100 mg PO DAILY 04/10/22 [History Confirmed 04/10/22] famotidine 20 mg tablet 20 mg PO DAILY 04/10/22 [History Confirmed 04/10/22] folic acid 1 mg tablet 1 mg PO DAILY 04/10/22 [History Confirmed 04/10/22] lysine 500 mg tablet (L-Lysine) 500 mg PO DAILY 04/10/22 [History Confirmed 04/10/22] magnesium 200 mg tablet 400 mg PO DAILY 04/10/22 [History Confirmed 04/10/22] modafinil 100 mg tablet 100 mg PO DAILY 04/10/22 [History Confirmed 04/10/22] montelukast 10 mg tablet 10 mg PO DAILY 04/10/22 [History Confirmed 04/10/22] saw palmetto 160 mg capsule 160 mg PO DAILY 04/10/22 [History Confirmed 04/10/22] thiamine HCl (vitamin B1) 100 mg tablet (Vitamin B-1) 100 mg PO DAILY 04/10/22 [History Confirmed 04/10/22] trazodone 100 mg tablet 150 mg PO BEDTIME 04/10/22 [History Confirmed 04/10/22] vitamin B complex 1 cap PO DAILY 04/10/22 [History Confirmed 04/10/22] Discharge Plan Discharge Patient Disposition: Home Condition: Stable Prescriptions: No Action diltiazem HCl 180 mg capsule,extended release 24hr 180 mg PO DAILY@07 tizanidine 4 mg tablet 4 mg PO BEDTIME@2199 pantoprazole 40 mg tablet,delayed release (DR/EC) 40 mg PO DAILY@07 lisinopril 10 mg tablet 5 mg PO DAILY@2199 topiramate 100 mg tablet 100 mg PO BEDTIME@2200 alfuzosin 10 mg tablet extended release 24 hr 10 mg PO DAILY@07 loratadine 10 mg Tablet 10 mg PO DAILY Vitamin B-1 100 mg Tablet 100 mg PO DAILY famotidine 20 mg Tablet 20 mg PO DAILY trazodone 100 mg Tablet 150 mg PO BEDTIME saw palmetto 160 mg Capsule 160 mg PO DAILY Rx Instructions: give with meal/snack folic acid 1 mg Tablet 1 mg PO DAILY montelukast 10 mg Tablet 10 mg PO DAILY L-Lysine 500 mg Tablet 500 mg PO DAILY B Complex Capsule 1 cap PO DAILY modafinil 100 mg Tablet 100 mg PO DAILY magnesium 200 mg Tablet 400 mg PO DAILY bupropion HCl 200 mg Tablet Sustained-Release 12 Hr 200 mg PO DAILY acamprosate 333 mg Tablet,Delayed Release (Dr/Ec) 666 mg PO TID Rx Instructions: administer with mid-day and evening meals desvenlafaxine succinate 100 mg Tablet Extended Release 24 Hr 100 mg PO DAILY Referrals: River Monroy [Primary Care Provider] - Patient Instructions: Opioid Safety Transfer Attestations Time Spent in Transfer Care: less than 30 min Status at Transfer: Cognitive status at transfer: cognitively intact; Behavioral status at transfer: cooperative; Quality Metrics Clinical Quality Measures [ No reported AMI, CVA or VTE this stay] Coding Level of Care Code Acute Director Report for Mynor Tesfaye Diagnoses Alcohol withdrawal syndrome F10.939
--- NOTE | 2022-04-13 00:50 | PC.NURSE ---
Upon 2200 rounding this nurse found the patient standing up in the room walking towards the bathroom. Patient stated I have to pee and want to use the bathroom This nurse helped ambulate the patient to the bathroom talking to him until he collapsed face first. Once on the ground patient appeared to be having a seizure. This nurse immediately accessed for any wounds and noted a bloody nose. Ancillary staff, after hearing the fall arrived in the room. At approximately 2204 This nurse called a rapid response. The patient was beginning to become responsive and would open eyes to verbal command. The patient was then transferred to the bed using a lift sheet. Patient kept stating I need air Patient was placed on nasal cannula and saturation was not adequate, so any oxy mask was placed on the patient. After the patient was responded to this nurse accompined the patient down to ct and after scans were complete this nurse alongside AZAM Martinez took the patient immediately to the ICU.
[2022-04-13 00:56] LABS: Alanine Aminotransferase 119 U/L (0-41); Chloride 107 mmol/L (98-107)
[2022-04-13 01:07] LABS: Anion Gap 18.4 (5-19); Aspartate Amino Transferase 248 U/L (0-40); Potassium 4.4 mmol/L (3.5-5.1)
[2022-04-13 01:14] LABS: Reflex Lactate Order REFLEX LACTIC ORDERD
[2022-04-13] MEDS: chlordiazePOXIDE 25 mg Capsule PO (01:34)
[2022-04-13 01:38] LABS: Troponin 5 2HR Delta 161 ABS# (0-10)
[2022-04-13 01:39] LABS: Troponin 5 2HR 207.6 ng/L (0-15)
--- NOTE | 2022-04-13 03:30 | PC.NURSE ---
@ 2206 QUALITY ASSURANCE SUPERVISOR BODY arrived to rapid response. pt was found on the ground with agonal breathing, with no response to verbal or pain. vital signs were obtained, blood glucose was collected (97). pupils sluggish, but reactive to light. patient was rolled to his side. pt was noted to have minimal bleeding from nose. patient was then rolled onto blanket and max assisted to bed. Once in bed pt was then placed trendelenburg. 15L nonbreather was applied. 1L NS bolus was started. additional IV was started, labs collected. once in bed patient appeared more alert and vocal about difficulty breathing. Report given to this QUALITY ASSURANCE SUPERVISOR BODY by AZAM Teran. CT of head and chest was ordered. Jeffry assisted this RN to CT. During CT pt experienced soft BP. pressure bag was was applied to bolus and MD was made aware (levophed was ordered). After CT pt was taken to ICU bed 8. Levophed was started at 2mcg/min. Patient was A&O x 4, following commands, clear lung sounds, +3 pluses on all extremities. Patient was bathed and linen was changed. 1L bolus of LR was delivered. Heparin gtt was started per Nicola (hep bolus was given per md was well) (see JUL). ECHO arrived and was unable to continue due to pt HR <120. made aware. 0036 MD made aware of critical 2 hr troponin and delta.
--- NOTE | 2022-04-13 03:47 | PC.NURSE ---
Report called to ALEJANDRINA Kenney RN @ 0048. This RN called again @ 0230 to inform [place] that pt wound be arriving by EMS, and given updates on labs and vital signs. 0316 patient left with EMS. Patient was on 15L nonbreather, levophed @ 2 mcg/min, heparin @ 34ml/hr and NS @ 100ml/hr. Once Pt departed unit This RN informed that pt had left. This RN also called Cecil burdick (pt's brother) and aba lillian (pt's daughter) to inform them he had left with EMS.
--- NOTE | 2022-04-13 04:09 | PC.NURSE ---
All belongs and paperwork was sent with EMS.
== END 2022-04-13 03:16 | disposition short-term general hospital (02) ==
LOC: ER 17:49 → ICU 18:20 → MEDSURG 04-12 15:44 → ICU 04-12 22:44
PROVIDERS: Internal Medicine; Admitting Provider Family Medicine; Emergency Provider Emergency Medicine; PCP Family Medicine; Visit Provider Family Medicine
DX: F10.939 Alcohol use, unspecified with withdrawal, unspecified (principal); E66.01 Morbid (severe) obesity due to excess calories; Z68.37 Body mass index [BMI] 37.0-37.9, adult; R56.9 Unspecified convulsions
CPT/HCPCS: 36415; 36416; 70450; 71275; 73030; 80053; 80306; 80307; 81003; 82962; 83036; 83605; 83735; 83880; 84100; 84145; 84443; 84484; 85025; 85049; 85378; 85610; 93005; 94664; 96361; 96372; 96374; 96375; 99285; G0378; J1644; J1650; J2060; J2270; J3411; J7030; J7060; J7120; Q9967